=== PATIENT | female | born 1980 | race Caucasian/White ===

== ENCOUNTER → 2016-08-15 | Outpatient (CLI) | payer BC, OTHER ==
[2016-08-15 11:54] LABS: CH 29.4; CHCM 32.6; HDW 2.66; HGB 11.6 gm/dL (11.4-16.0); MCH 29.4 pg (25.0-35.0); MCHC 32.3 g/dL (31.0-37.0); MCV 90.9 fL (80.0-100.0); Mean Platelet Volume 7.7; RBC 3.95 m/uL (3.80-5.40); RDW 13.6 % (11.5-15.5); WBC 16.4 k/uL (3.8-10.6)
== END | disposition home or self-care (01) ==
LOC: LABWHC1 10:26
PROVIDERS: ATTEND Internal Medicine Cardiovascular Disease
DX: Z34.82 Encounter for supervision of other normal pregnancy, second trimester (principal); Z3A.00 Weeks of gestation of pregnancy not specified
CPT/HCPCS: 36415; 82950; 84439; 84443; 85027

== ENCOUNTER 2016-11-04 10:18 | Inpatient (IN) | payer BC, OTHER ==
[2016-11-04 10:59] VITALS: BMI 54.9
[2016-11-04] MEDS ORDERED: CITRIC ACID-SODIUM CITRATE 15 ML CUP PO ONE (11:14)
[2016-11-04] MEDS ORDERED: ceFAZolin 3 GM in SODIUM CHLORIDE 0.9% 100 ML IVPB ONE (11:14)
[2016-11-04] MEDS: LACTATED RINGERS 1,000 ML IV SCH ×3 (11:28→21:51)
[2016-11-04 11:54] LABS: Basophils % (A) 0 %; CHCM 32.1; Eosinophils # (A) 0.3 k/uL (0-0.7); Eosinophils % (A) 2 %; HCT 35.4 % (34.0-46.0); HDW 2.62; HGB 11.2 gm/dL (11.4-16.0); Luc # (Auto) 0.26; Luc % (Auto) 2; Lymphocytes # (A) 2.2 k/uL (1.0-4.8); Lymphocytes % (A) 17 %; MCH 28.7 pg (25.0-35.0); MCHC 31.6 g/dL (31.0-37.0); MCV 90.9 fL (80.0-100.0); Mean Platelet Volume 7.3; Monocytes # (A) 0.7 k/uL (0-1.0); Monocytes % (A) 5 %; Neutrophils # (A) 9.6 k/uL (1.3-7.7); Neutrophils % (A) 73 %; RDW 14.7 % (11.5-15.5); WBC 13.1 k/uL (3.8-10.6); WBC (Perox) 14.08
[2016-11-04] MEDS ORDERED: ONDANSETRON 4 MG/2 ML VIAL ONE (16:17)
[2016-11-04] MEDS ORDERED: PHENYLEPHRINE-0.9% NACL SYG 1 MG/10 ML SYRINGE ONE (16:17)
[2016-11-04] MEDS ORDERED: OXYTOCIN 10 UNIT/ML 1 ML VIAL IM ONE (16:17)
[2016-11-04] MEDS ORDERED: fentaNYL (PF) 50 MCG/ML 2 ML AMP ONE (16:17)
[2016-11-04] MEDS ORDERED: DEXAMETHASONE SOD PHOS (MDV) 100 MG/10 ML VIAL ONE (16:17)
[2016-11-04] MEDS ORDERED: MORPHINE SULFATE (PF) 0.3 MG/0.3 ML SYR ONE (16:17)
[2016-11-04] MEDS ORDERED: MORPHINE SULFATE 4 MG/ML SYRINGE IVP PRN (17:03)
[2016-11-04] MEDS ORDERED: ONDANSETRON 4 MG/2 ML VIAL IVP PRN ×2 (17:03→17:05)
[2016-11-04] MEDS ORDERED: NALOXONE 0.4 MG/ML 1 ML VIAL IV PRN ×2 (17:03→17:05)
[2016-11-04] MEDS ORDERED: diphenhydrAMINE 50 MG/ML 1 ML VIAL IVP PRN ×3 (17:03→17:05)
[2016-11-04] MEDS ORDERED: ZOLPIDEM 5 MG TAB PO PRN (17:05)
[2016-11-04] MEDS ORDERED: diphenhydrAMINE 25 MG CAP PO PRN (17:05)
[2016-11-04] MEDS ORDERED: Acetaminophen-Codeine 300-30mg TAB PO PRN ×2 (17:05)
[2016-11-04] MEDS ORDERED: SIMETHICONE 80 MG CHEWABLE PO PRN (17:05)
[2016-11-04] MEDS ORDERED: ACETAMINOPHEN TAB 325 MG TAB PO PRN (17:05)
[2016-11-04] MEDS ORDERED: diphenhydrAMINE 50 MG CAP PO PRN (17:05)
[2016-11-04] MEDS ORDERED: METOCLOPRAMIDE 5 MG/ML 2 ML VIAL IVP PRN (17:05)
[2016-11-04] MEDS ORDERED: KETOROLAC 30 MG/ML 1 ML VIAL IVP PRN (17:05)
--- NOTE | 2016-11-04 17:09 | P.HPOB ---
History of Present Illness H&P Date: 11/04/16 Chief Complaint: iup term:hypertension:narcolepsy Pain is a 36-year-old at 37 weeks gestation who arrives from my office having elevated blood pressures. Blood pressure the office was 160/92 she is therefore scheduled for a primary low transverse section. A long discussion was held with the patient on induction versus due to her medical history she does not want to try an induction particular was unfavorable cervix. Her cervix is closed thick and high and we would need to before doing an induction verify position of the baby as I cannot palpate the position and patient is morbidly obese limiting the ability for Trey's. However she has opted for section. Risks/benefits/alternatives to this were discussed with patient in detail as well as her and all questions were answered for her prior to proceeding to the operating room. On physical exam this is morbidly obese female whose HEENT is unremarkable. Heart regular, lungs clear, extremities without pain abdomen soft gravid uterus is noted. heart tones 130s to 140s and were reactive in the office. Since being in labor and delivery she has had no overly significant blood pressure issues and her blood pressure prior to going to the section was 120/70. Assessment intrauterine at term with hypertension and narcolepsy. Plan primary low transverse section Past Medical History Past Medical History: Hypertension Additional Past Medical History / Comment(s): narcolepsy History of Any Multi-Drug Resistant Organisms: None Reported Past Surgical History: Cholecystectomy, Tonsillectomy Additional Past Surgical History / Comment(s): hx of narcolepsy Past Psychological History: Depression Smoking Status: Former smoker Past Alcohol Use History: None Reported Past Drug Use History: Marijuana - Past Family History Mother Additional Family Medical History / Comment(s): mother hypertension Medications and Allergies Home Medications Medication Instructions Recorded Confirmed Type Aspirin 81 mg PO DAILY 05/26/15 11/04/16 History Labetalol [Trandate] 200 mg PO BID 11/04/16 11/04/16 History Pnv with Ca,No.72/Iron/FA 1 each PO DAILY 11/04/16 11/04/16 History [ Plus Tablet] Allergies Allergy/AdvReac Type Severity Reaction Status Date / Time No Known Allergies Allergy Verified 05/26/15 10:28 Exam Osteopathic Statement: *. No significant issues noted on an osteopathic structural exam other than those noted in the History and Physical/Consult. - Vital Signs Vital signs: Vital Signs Temp Pulse Resp BP 11/04/16 10:51 97.8 F 82 16 120/70 Intake and Output 11/04/16 11/04/16 11/04/16 06:59 14:59 22:59 Intake Total 1200 Balance 1200 Intake: IV 1200 Lactated Ringers 1,000 ml 1200 @ 125 mls/hr IV .Q8H [facility] Rx#:[id number] Other: Weight 149.685 kg Patient Weight 11/05/16 06:59 Weight 149.685 kg - OBG Physical Exam Abdomen: bowel sounds normal, no diffuse tenderness, no bruit present, no guarding noted, no hepatomegaly, no splenomegaly, no mass Results Result Diagrams: 11/04/16 11:28 Abnormal Lab Results - Last 24 Hours (Table) 11/04/16 Range/Units 11:28 WBC 13.1 H (3.8-10.6) k/uL Hgb 11.2 L (11.4-16.0) gm/dL Neutrophils # 9.6 H (1.3-7.7) k/uL
--- NOTE | 2016-11-04 17:13 | P.OP ---
Date of Procedure: 11/04/16 Preoperative Diagnosis: Intrauterine at term: Hypertension: Narcolepsy Postoperative Diagnosis: Same: Autumn breech presentation Procedure(s) Performed: Primary low transverse section Anesthesia: spinal Surgeon: Noah Black Automatic Die Cutting Machine Operator #1: Jw Bobby Estimated Blood Loss (ml): 600 IV fluids (ml): 600 Urine output (ml): 200 Pathology: other (Placenta) Condition: stable Disposition: floor Operative Findings: Female from autumn breech presentation scores of 9 and 9 at one and 5 minutes respectively and weight was 6 lbs. 6 oz. Description of Procedure: Patient was taken the operating suite where a spinal anesthetic was found to be adequate. She was prepped and draped in the normal sterile fashion and placed in dorsal supine position with leftward tilt. Initially a Pfannenstiel skin incision was made and this incision was then carried through to underlying layer of the fascia was second knife. Fascia was then nicked in the midline and this opening was extended laterally with Saxena scissors. Superior and inferior aspect of this incision were then grasped tented up and bluntly and sharply dissected off the rectus muscles. Rectus muscles were then divided in the midline and sharp dissection through the peritoneum was made. This opening was then extended superiorly and inferiorly with good visualization of both bowel bladder. Bladder blade was then placed and the bladder flap was identified. It was entered sharply with Metzenbaum scissors and this opening was extended across the face of the uterus with Metzenbaum scissors. Knife was then used to incise uterus was then opened fully with hemostat and extended bluntly. Breech presentation was then noted and the buttock was elevated to the incision and with fundal pressure we were able to deliver down to level of the shoulders arms were swept in front and in the head was atraumatically delivered. Mouth nares were then bulb suctioned and the umbilical cord was clamped and cut in usual fashion. Nursery personnel was then present to assume care. Placenta was then delivered intact and Pitocin was added to the IV. Uterus was then exteriorized cleared of clots and debris and closed in 2 layers with 0 Vicryl suture. Once excellent hemostasis was noted 3-0 Vicryl was used to reapproximate the bladder flap. Blood and debris was then suctioned from the posterior cul-de-sac and uterus was reinserted into the abdomen. Peritoneal layer was then reapproximated with 0 Vicryl suture. Fascial layer was closed with 0 Vicryl suture. 3-0 Vicryl was then used to reapproximate the subcuticular tissues and the skin was closed with 3-0 Vicryl on a Aníbal needle. Sponge, lap, needle counts were all correct 2. Patient was taken to the recovery room in stable and satisfactory condition.
[2016-11-04] MEDS: SENNOSIDES-DOCUSATE SODIUM 1 EACH TAB PO SCH (21:49)
[2016-11-05] MEDS: KETOROLAC 30 MG/ML 1 ML VIAL IVP PRN ×2 (04:19→11:58)
[2016-11-05] MEDS: LACTATED RINGERS 1,000 ML IV SCH ×3 (04:55→06:33)
[2016-11-05 07:51] LABS: Basophils % (A) 0 %; CH 28.9; CHCM 32.8; Eosinophils # (A) 0.1 k/uL (0-0.7); Eosinophils % (A) 0 %; HCT 35.1 % (34.0-46.0); HDW 2.67; HGB 11.5 gm/dL (11.4-16.0); Luc # (Auto) 0.32; Luc % (Auto) 2; Lymphocytes # (A) 2.2 k/uL (1.0-4.8); Lymphocytes % (A) 12 %; MCH 29.1 pg (25.0-35.0); MCHC 32.8 g/dL (31.0-37.0); MCV 88.6 fL (80.0-100.0); Mean Platelet Volume 6.9; Monocytes # (A) 0.8 k/uL (0-1.0); Monocytes % (A) 4 %; Neutrophils # (A) 15.7 k/uL (1.3-7.7); Neutrophils % (A) 82 %; RBC 3.96 m/uL (3.80-5.40); RDW 14.2 % (11.5-15.5); WBC 19.1 k/uL (3.8-10.6); WBC (Perox) 20.16
[2016-11-05] MEDS: SENNOSIDES-DOCUSATE SODIUM 1 EACH TAB PO SCH ×2 (08:05→23:15)
--- NOTE | 2016-11-05 12:49 | P.PNOBGPC ---
Subjective - Subjective Principal diagnosis: post op day 1 Interval history: doing very well ambulating and voiding as well as tolerating her diet. all questions answered for her. cont care for now. bp have been good since c/s. Patient reports: Reports appetite normal, Reports voiding normally, Reports pain well controlled, Reports ambulating normally [place]: doing well Objective - Vital Signs Latest vital signs: Vital Signs Temp Pulse Resp BP BP Pulse Ox 11/05/16 12:00 98.6 F 72 16 115/58 11/05/16 07:46 98.5 F 75 16 117/61 11/05/16 06:00 16 97 11/05/16 04:00 98.2 F 68 16 109/58 97 11/05/16 02:00 16 97 11/05/16 00:00 96.2 F L 71 16 114/66 97 11/04/16 22:00 97.5 F L 78 16 116/68 97 11/04/16 20:00 98.0 F 68 16 125/72 98 11/04/16 19:05 96.6 F L 79 16 121/64 98 11/04/16 18:35 97.5 F L 85 16 97/58 11/04/16 18:04 78 16 98/53 100 11/04/16 17:50 79 16 102/65 11/04/16 17:35 97.0 F L 79 16 119/53 11/04/16 17:20 84 16 119/57 11/04/16 17:05 97.6 F 86 16 121/71 11/04/16 17:04 100 Intake and Output 11/04/16 11/05/16 11/05/16 22:59 06:59 14:59 Intake Total 1700 1000 Output Total 200 1200 300 Balance 1500 -200 -300 Intake: IV 1700 1000 Lactated Ringers 1,000 ml 1000 1000 @ 125 mls/hr IV .Q8H [facility] Rx#:[id number] Output: Urine 200 1200 300 Uretheral ([place]) 900 Other: # Voids 0 1 1 - Exam Lungs: bilateral: normal Chest: Normal S1, Normal S2 Extremities: Present: normal Abdomen: Present: normal appearance, soft. Absent: distention, tenderness Incision: Present: normal, dry, intact Uterus: Present: normal, firm - Labs Labs: Abnormal Lab Results - Last 24 Hours (Table) 11/05/16 Range/Units 07:43 WBC 19.1 H (3.8-10.6) k/uL Neutrophils # 15.7 H (1.3-7.7) k/uL
--- NOTE | 2016-11-05 17:55 | P.PN ---
Progress Note - Text Postoperative day 1 status post section under spinal anesthesia, and intrathecal morphine given for postoperative analgesia, patient doing well, there is no anesthesia related complications, further management as per her primary team
[2016-11-05] MEDS: IBUPROFEN 600 MG TAB PO PRN (18:18)
[2016-11-06] MEDS: IBUPROFEN 600 MG TAB PO PRN ×3 (02:15→17:49)
[2016-11-06] MEDS: SENNOSIDES-DOCUSATE SODIUM 1 EACH TAB PO SCH ×2 (08:13→20:09)
[2016-11-06] MEDS ORDERED: HYDROcodone/APAP 5-325MG 1 EACH TAB PO PRN (11:15)
--- NOTE | 2016-11-06 11:18 | P.PNOBGPC ---
Subjective - Subjective Principal diagnosis: Postoperative day 2 Interval history: Overall Janee is doing well. She is having some pain and we'll switch her to [place] for same. Otherwise she is involuting, voiding and she is tolerating her diet. She does voices no other complaints. Vital signs again are stable with excellent blood pressures. We'll plan to keep her today and work with her with breast-feeding with expectation for hopeful discharge tomorrow. All the questions are answered for her at this time. Heart regular, lungs clear, extremities without pain. Assessment post op day 2. Plan continue current care Objective - Vital Signs Latest vital signs: Vital Signs Temp Pulse Resp BP BP Pulse Ox 11/06/16 08:00 97.9 F 86 20 130/63 98 11/06/16 04:00 98.0 F 79 18 116/65 99 11/06/16 00:00 98.1 F 77 16 119/58 99 11/05/16 19:39 98.0 F 72 18 130/78 100 11/05/16 16:00 98.5 F 81 16 125/57 11/05/16 12:00 98.6 F 72 16 115/58 - Exam Lungs: bilateral: normal Chest: Normal S1, Normal S2 Extremities: Present: normal Abdomen: Present: normal appearance, soft. Absent: distention, tenderness Incision: Present: normal, dry, intact Uterus: Present: normal, firm
[2016-11-06] MEDS: HYDROcodone/APAP 5-325MG 1 EACH TAB PO PRN ×2 (14:30→22:55)
[2016-11-06] MEDS: LACTATED RINGERS 1,000 ML IV SCH ×4 (20:07→20:09)
[2016-11-07] MEDS: IBUPROFEN 600 MG TAB PO PRN (03:46)
[2016-11-07] MEDS: HYDROcodone/APAP 5-325MG 1 EACH TAB PO PRN (07:17)
[2016-11-07] MEDS: SENNOSIDES-DOCUSATE SODIUM 1 EACH TAB PO SCH (07:18)
[2016-11-07 07:23] VITALS: BP 131/72; PULSE 84; RESP 18; TEMP 98.1
--- NOTE | 2016-11-07 11:11 | P.DS ---
Providers Date of admission: 11/04/16 10:18 Expected date of discharge: 11/07/16 Attending physician: Noah Black Hospital Course: Chelsey is discharged home in stable and satisfactory condition on postop day 3. She is ambulating, voiding, and she is tolerating her diet. Pain is better controlled on [place]. Vital signs are stable and afebrile. Heart regular, lungs clear, extremities without pain. She'll follow me in 1 week. Prescription for Motrin, [place] were both provided as well as a prescription for a breast pump. All other questions are answered for her prior to her discharge and she is stable for discharge today. Patient Condition at Discharge: Good Plan - Discharge Summary New Discharge Prescriptions: HYDROcodone/APAP 5-325MG [[place] 5-325] 1 tab PO Q4HR PRN #30 tab PRN Reason: Pain Ibuprofen [Motrin] 600 mg PO Q6HR PRN #30 tab PRN Reason: Pain Discharge Medication List Aspirin 81 mg PO DAILY 05/26/15 [History] Labetalol [Trandate] 200 mg PO BID 11/04/16 [History] Pnv with Ca,No.72/Iron/FA [ Plus Tablet] 1 each PO DAILY 11/04/16 [ History] HYDROcodone/APAP 5-325MG [[place] 5-325] 1 tab PO Q4HR PRN #30 tab 11/06/16 [Rx] Ibuprofen [Motrin] 600 mg PO Q6HR PRN #30 tab 11/06/16 [Rx] Follow up Appointment(s)/Referral(s): Noah Black DO [Doctor of Osteopathic Medicine] - 1 Week Activity/Diet/Wound Care/Special Instructions: No heavy lifting, limit stairs and driving, and pelvic rest. If any high temperatures, heavy bleeding, or severe pain call my office. Discharge Disposition: HOME SELF-CARE
== END 2016-11-07 10:10 | disposition home or self-care (01) | DRG 765 ==
LOC: 4FBP 10:18
PROVIDERS: ADMIT Obstetrics & Gynecology; ATTEND Obstetrics & Gynecology
PROC: 10D00Z1 Extraction of Products of Conception, Low, Open Approach (ICD-10-PCS; principal; 2016-11-04 16:00)
DX: O10.92 Unspecified pre-existing hypertension complicating childbirth (principal); Z68.43 Body mass index [BMI] 50.0-59.9, adult; O99.354 Diseases of the nervous system complicating childbirth; E66.01 Morbid (severe) obesity due to excess calories; O99.214 Obesity complicating childbirth; O32.1XX0 Maternal care for breech presentation, not applicable or unspecified; G47.419 Narcolepsy without cataplexy; Z37.0 Single live birth; Z3A.37 37 weeks gestation of pregnancy; Z86.59 Personal history of other mental and behavioral disorders; Z87.891 Personal history of nicotine dependence; Z79.82 Long term (current) use of aspirin; Z79.899 Other long term (current) drug therapy; Z82.49 Family history of ischemic heart disease and other diseases of the circulatory system
CPT/HCPCS: 85025; 86850; 86900; 86901; 88307

== ENCOUNTER 2017-10-04 17:40 | Emergency (ER) | payer BC, OTHER ==
[2017-10-04 17:48] VITALS: RESP 18; TEMP 98.4
[2017-10-04] MEDS ORDERED: ALBUTEROL NEBULIZED 2.5 MG/3 ML INHALATION STA (18:22)
[2017-10-04] MEDS ORDERED: SODIUM CHLORIDE 0.9% 1,000 ML IV STA (18:22)
--- NOTE | 2017-10-04 18:27 | ED ---
SOB HPI - General Chief Complaint: Shortness of Breath Stated Complaint: Dehydration Time Seen by Provider: 10/04/17 18:09 Source: patient, RN notes reviewed, old records reviewed Mode of arrival: ambulatory Limitations: no limitations - History of Present Illness Initial Comments: This is a 37-year-old female presents emergency department today she complained shortness breath for one day. She states that she went to [place] today for chief complaint of upper respiratory sinus congestion for the past 4 weeks. Patient was seen by the physician there and he thought it appropriate to order an EKG. She denies any chest pain at this time. He sent her to the ER for further evaluation due to an abnormal EKG. Patient reports that she has no specific chest pain at this time no nausea or vomiting. She states she's been having some upper respiratory congestion. No fevers or chills. She states that she is more short of breath when she is ambulating. Patient onto a chest x -ray or any other evaluation and sent her directly here. This patient is a previous smoker. - Related Data Home Medications Medication Instructions Recorded Confirmed Dextroamphetamine/Amphetamine 30 mg PO BID 10/04/17 10/04/17 [Adderall] Labetalol HCl 100 mg PO DAILY 10/04/17 10/04/17 QUEtiapine FUMARATE [SEROquel] 25 mg PO HS 10/04/17 10/04/17 l-Norgest/E.estradiol-E.estrad 1 tab PO DAILY 10/04/17 10/04/17 [Seasonique 0.15-0.03-0.01 Tab] Previous Rx's Medication Instructions Recorded Amoxic-Pot Clav 875-125Mg 1 tab PO Q12HR #20 tablet 10/04/17 [Augmentin 875-125] Fluticasone Propionate [Flonase 1 spray EA NOSTRIL BID #1 bottle 10/04/17 Allergy Relief] Allergies Allergy/AdvReac Type Severity Reaction Status Date / Time No Known Allergies Allergy Verified 10/04/17 18:33 Review of Systems ROS Statement: Those systems with pertinent positive or pertinent negative responses have been documented in the HPI. ROS Other: All systems not noted in ROS Statement are negative. Past Medical History Past Medical History: Hypertension Additional Past Medical History / Comment(s): narcolepsy History of Any Multi-Drug Resistant Organisms: None Reported Past Surgical History: Cholecystectomy, Tonsillectomy Additional Past Surgical History / Comment(s): hx of narcolepsy Past Psychological History: Depression Smoking Status: Former smoker Past Alcohol Use History: None Reported Past Drug Use History: Marijuana - Past Family History Mother Additional Family Medical History / Comment(s): mother hypertension General Exam - General Exam Comments Initial Comments: This patient is a 37-year-old female. She does not appear to be in any acute distress. Limitations: no limitations General appearance: alert, in no apparent distress Head exam: Present: atraumatic, normocephalic, normal inspection Eye exam: Present: normal appearance, PERRL, EOMI. Absent: scleral icterus, conjunctival injection, periorbital swelling ENT exam: Present: normal exam, mucous membranes moist Neck exam: Present: normal inspection. Absent: tenderness, meningismus, lymphadenopathy Respiratory exam: Present: normal lung sounds bilaterally. Absent: respiratory distress, wheezes, rales, rhonchi, stridor Cardiovascular Exam: Present: regular rate, normal rhythm, normal heart sounds. Absent: systolic murmur, diastolic murmur, rubs, gallop, clicks GI/Abdominal exam: Present: soft, normal bowel sounds. Absent: distended, tenderness, guarding, rebound, rigid Extremities exam: Present: normal inspection, full ROM, normal capillary refill. Absent: tenderness, pedal edema, joint swelling, calf tenderness Back exam: Present: normal inspection Neurological exam: Present: alert, oriented X3, CN II-XII intact Psychiatric exam: Present: normal affect, normal mood Skin exam: Present: warm, dry, intact, normal color. Absent: rash Course Vital Signs 10/04/17 10/04/17 10/04/17 17:46 18:36 18:37 Temperature 98.4 F Pulse Rate 82 82 Respiratory 18 18 Rate Blood Pressure 147/72 O2 Sat by Pulse 99 Oximetry 10/04/17 20:14 Temperature Pulse Rate 71 Respiratory 18 Rate Blood Pressure 136/100 O2 Sat by Pulse Oximetry Medical Decision Making - Medical Decision Making This is a 37-year-old female presents emergency department today she complained shortness breath for one day. She states that she went to [place] today for chief complaint of upper respiratory sinus congestion for the past 4 weeks. Patient was seen by the physician there and he thought it appropriate to order an EKG. She denies any chest pain at this time. He sent her to the ER for further evaluation due to an abnormal EKG. this patient is EKG was reviewed and does show some mild PVCs. She is a syncopal episodes. Denies any chest pain. Patient was given IV fluids labwork obtained. She does have an elevated white blood cell count, likely related to inflammatory response with the sinusitis. Patient chest x-ray was reviewed and normal. All other other labs were unremarkable. Patient reports that after breathing treatment seems like her shortness of breath seems to diminish. She states that she would like to home and follow-up with primary care provider. This mL for the patient on Augmentin for sinusitis and Flonase. Discussed the importance of following up with her primary care provider. All questions were answered and return parameters were discussed. - Lab Data Result diagrams: 10/04/17 18:28 10/04/17 18:28 Lab Results 10/04/17 10/04/17 10/04/17 Range/Units 18:28 18:28 18:28 WBC 15.3 H (3.8-10.6) k/uL RBC 4.69 (3.80-5.40) m/uL Hgb 13.4 (11.4-16.0) gm/dL Hct 41.3 (34.0-46.0) % MCV 88.0 (80.0-100.0) fL MCH 28.6 (25.0-35.0) pg MCHC 32.5 (31.0-37.0) g/dL RDW 13.8 (11.5-15.5) % Plt Count 380 (150-450) k/uL Neutrophils % 68 % Lymphocytes % 23 % Monocytes % 5 % Eosinophils % 3 % Basophils % 1 % Neutrophils # 10.5 H (1.3-7.7) k/uL Lymphocytes # 3.4 (1.0-4.8) k/uL Monocytes # 0.8 (0-1.0) k/uL Eosinophils # 0.4 (0-0.7) k/uL Basophils # 0.1 (0-0.2) k/uL PT (9.0-12.0) sec INR (<1.2) APTT (22.0-30.0) sec D-Dimer (<0.60) mg/L FEU Sodium 139 (137-145) mmol/L Potassium 4.2 (3.5-5.1) mmol/L Chloride 104 (98-107) mmol/L Carbon Dioxide 25 (22-30) mmol/L Anion Gap 10 mmol/L BUN 10 (7-17) mg/dL Creatinine 0.80 (0.52-1.04) mg/dL Est GFR (CKD-EPI)AfAm >90 (>60 ml/min/1.73 sqM) Est GFR (CKD-EPI)NonAf >90 (>60 ml/min/1.73 sqM) Glucose 90 (74-99) mg/dL Calcium 9.8 (8.4-10.2) mg/dL Magnesium 1.9 (1.6-2.3) mg/dL Total Bilirubin 0.4 (0.2-1.3) mg/dL AST 14 (14-36) U/L ALT 25 (9-52) U/L Alkaline Phosphatase 92 (38-126) U/L Total Creatine Kinase 70 (30-135) U/L CK-MB (CK-2) 0.5 (0.0-2.4) ng/mL CK-MB (CK-2) Rel Index 0.7 Troponin I <0.012 (0.000-0.034) ng/mL Total Protein 7.5 (6.3-8.2) g/dL Albumin 4.1 (3.5-5.0) g/dL 10/04/17 Range/Units 18:28 WBC (3.8-10.6) k/uL RBC (3.80-5.40) m/uL Hgb (11.4-16.0) gm/dL Hct (34.0-46.0) % MCV (80.0-100.0) fL MCH (25.0-35.0) pg MCHC (31.0-37.0) g/dL RDW (11.5-15.5) % Plt Count (150-450) k/uL Neutrophils % % Lymphocytes % % Monocytes % % Eosinophils % % Basophils % % Neutrophils # (1.3-7.7) k/uL Lymphocytes # (1.0-4.8) k/uL Monocytes # (0-1.0) k/uL Eosinophils # (0-0.7) k/uL Basophils # (0-0.2) k/uL PT 9.6 (9.0-12.0) sec INR 1.0 (<1.2) APTT 25.5 (22.0-30.0) sec D-Dimer 0.41 (<0.60) mg/L FEU Sodium (137-145) mmol/L Potassium (3.5-5.1) mmol/L Chloride (98-107) mmol/L Carbon Dioxide (22-30) mmol/L Anion Gap mmol/L BUN (7-17) mg/dL Creatinine (0.52-1.04) mg/dL Est GFR (CKD-EPI)AfAm (>60 ml/min/1.73 sqM) Est GFR (CKD-EPI)NonAf (>60 ml/min/1.73 sqM) Glucose (74-99) mg/dL Calcium (8.4-10.2) mg/dL Magnesium (1.6-2.3) mg/dL Total Bilirubin (0.2-1.3) mg/dL AST (14-36) U/L ALT (9-52) U/L Alkaline Phosphatase (38-126) U/L Total Creatine Kinase (30-135) U/L CK-MB (CK-2) (0.0-2.4) ng/mL CK-MB (CK-2) Rel Index Troponin I (0.000-0.034) ng/mL Total Protein (6.3-8.2) g/dL Albumin (3.5-5.0) g/dL 10/04/17 19:53 10/04/17 19:53 EKG shows sinus rhythm with occasional PVCs. Otherwise normal EKG. Ventricular rate of 87 bpm. AK interval 160 for male sex. QRS duration 80 ms. QT QTc is 380/457 ms. Noticed this elevation or T-wave inversion. No evidence of atrial or ventricular arrhythmias. - Radiology Data Radiology results: report reviewed Normal chest x-ray. No acute changes. Disposition Clinical Impression: Sinusitis, PVC (premature ventricular contraction) Disposition: HOME SELF-CARE Condition: Good Instructions: Sinusitis (ED) Additional Instructions: and advised to follow-up with primary care provider in the next 22 days. Return to emergency department if any alarming signs or symptoms occur. Prescriptions: Amoxic-Pot Clav 875-125Mg [Augmentin 875-125] 1 tab PO Q12HR #20 tablet Fluticasone Propionate [Flonase Allergy Relief] 1 spray EA NOSTRIL BID #1 bottle Referrals: Davie Putnam DO [Primary Care Provider] - 1-2 days Time of Disposition: 20:11
[2017-10-04 18:38] LABS: Basophils # (A) 0.1 k/uL (0-0.2); Basophils % (A) 1 %; Eosinophils # (A) 0.4 k/uL (0-0.7); Eosinophils % (A) 3 %; HCT 41.3 % (34.0-46.0); HGB 13.4 gm/dL (11.4-16.0); Lymphocytes # (A) 3.4 k/uL (1.0-4.8); Lymphocytes % (A) 23 %; MCH 28.6 pg (25.0-35.0); MCHC 32.5 g/dL (31.0-37.0); Mean Platelet Volume 7.9; Monocytes # (A) 0.8 k/uL (0-1.0); Monocytes % (A) 5 %; Neutrophils # (A) 10.5 k/uL (1.3-7.7); Neutrophils % (A) 68 %; Platelet Count 380 k/uL (150-450); RBC 4.69 m/uL (3.80-5.40); RDW 13.8 % (11.5-15.5); WBC 15.3 k/uL (3.8-10.6)
[2017-10-04 18:51] LABS: D-Dimer 0.41 mg/L FEU (<0.60)
[2017-10-04 18:54] LABS: ALT 25 U/L (9-52); AST 14 U/L (14-36); Albumin 4.1 g/dL (3.5-5.0); Alkaline Phosphatase 92 U/L (38-126); Anion Gap 10 mmol/L; Blood Urea Nitrogen 10 mg/dL (7-17); Calcium 9.8 mg/dL (8.4-10.2); Carbon Dioxide 25 mmol/L (22-30); Chloride 104 mmol/L (98-107); Creatine Kinase 70 U/L (30-135); Glucose 90 mg/dL (74-99); Magnesium 1.9 mg/dL (1.6-2.3); Potassium 4.2 mmol/L (3.5-5.1); Sodium 139 mmol/L (137-145); Total Bilirubin 0.4 mg/dL (0.2-1.3); Total Protein 7.5 g/dL (6.3-8.2)
[2017-10-04 18:55] LABS: Partial Thromboplastin Time 25.5 sec (22.0-30.0); Prothrombin Time 9.6 sec (9.0-12.0)
[2017-10-04 19:08] LABS: Creatine Kinase MB 0.5 ng/mL (0.0-2.4); Troponin I <0.012 ng/mL (0.000-0.034)
--- NOTE | 2017-10-04 19:39 | XR ---
EXAMINATION TYPE: XR chest 2V DATE OF EXAM: 10/04/2017 COMPARISON: 10/19/2014 HISTORY: Difficulty breathing TECHNIQUE: Frontal and lateral views of the chest are obtained. FINDINGS: Heart and mediastinum are normal. Lungs are clear. Diaphragm is normal. Bony thorax is int act. IMPRESSION: Normal chest. No change.
[2017-10-04 20:15] VITALS: BP 136/100; PULSE 71
== END 2017-10-04 20:33 | disposition home or self-care (01) ==
LOC: EC 17:40
DX: I49.3 Ventricular premature depolarization (principal); J32.9 Chronic sinusitis, unspecified; D72.829 Elevated white blood cell count, unspecified; I10 Essential (primary) hypertension; F32.9 Major depressive disorder, single episode, unspecified; Z87.891 Personal history of nicotine dependence; Z79.3 Long term (current) use of hormonal contraceptives; Z79.899 Other long term (current) drug therapy; Z82.49 Family history of ischemic heart disease and other diseases of the circulatory system
CPT/HCPCS: 36415; 71046; 80053; 82550; 82553; 83735; 84484; 85025; 85379; 85610; 85730; 93005; 94640; 96360; 96361; 99285

== ENCOUNTER → 2017-12-08 | Outpatient (CLI) | payer BC ==
--- NOTE | 2017-12-08 10:16 | P.STRESS ---
- Stress Test Note Stress Test Results/Findings: Exam Performed: stress echo exercise Exam Date: 12/08/17 Reason for Exam: SOB / PALP Height: 5 ft 3 in Weight: 149.685 kg Protocol: GIA Stage: 2 Duration of Exercise: 5:00 Resting Heart Rate: 90 Resting Blood Pressure: 135/85 Maximum Achieved Heart Rate: 169 Maximum Achieved Blood Pressure: 154/46 85% PMHR: 156 100% PMHR: 184 METS: 7.0 Technologist Comment: Stress Test Results/Findings: Low average excess capacity of 5 minutes only. Baseline heart rate 90 beats a minute, Baseline blood pressure 135/85 mmHg. Peak heart rate 169 beats a minute peak blood pressure 236/60 mmHg No ECG evidence for ischemia PACs noted at regular intervals No exercise induced atrial fibrillation
--- NOTE | 2017-12-12 13:43 | EST ---
Addendum entered and electronically signed by Sukhwinder Watkins MD 12/08/17 10:52: Original Note: - Stress Test Note Stress Test Results/Findings: Exam Performed: stress echo exercise Exam Date: 12/08/17 Reason for Exam: SOB / PALP Height: 5 ft 3 in Weight: 149.685 kg Protocol: GIA Stage: 2 Duration of Exercise: 5:00 Resting Heart Rate: 90 Resting Blood Pressure: 135/85 Maximum Achieved Heart Rate: 169 Maximum Achieved Blood Pressure: 154/46 85% PMHR: 156 100% PMHR: 184 METS: 7.0 Technologist Comment: Stress Test Results/Findings: Low average excess capacity of 5 minutes only. Baseline heart rate 90 beats a minute, Baseline blood pressure 135/85 mmHg. Peak heart rate 169 beats a minute peak blood pressure 236/60 mmHg No ECG evidence for ischemia PACs noted at regular intervals No exercise induced atrial fibrillation MTDD
== END | disposition home or self-care (01) ==
LOC: RADNMMAIN 08:58
PROVIDERS: ATTEND Family Medicine
DX: R07.89 Other chest pain (principal)
CPT/HCPCS: 93017; 93270; 93271; 93306

== ENCOUNTER → 2019-05-21 | Outpatient (CLI) | payer BC ==
[2019-05-21 08:29] LABS: HCT 39.3 % (34.0-46.0); HGB 12.9 gm/dL (11.4-16.0); MCH 31.4 pg (25.0-35.0); MCHC 32.7 g/dL (31.0-37.0); MCV 95.8 fL (80.0-100.0); Mean Platelet Volume 6.9; Platelet Count 303 k/uL (150-450); RBC 4.11 m/uL (3.80-5.40); RDW 12.6 % (11.5-15.5); WBC 10.1 k/uL (3.8-10.6)
[2019-05-21 09:38] LABS: Appearance,Urine Clear (Clear); Bacteria,Urine Rare /hpf; Bilirubin,Urine Negative (Negative); Blood,Urine Trace (Negative); Color,Urine Yellow; Glucose,Urine (UA) Negative (Negative); Ketones,Urine Negative (Negative); Leukocyte Esterase,Urine Negative (Negative); Mucus,Urine Few /hpf; Nitrite,Urine Negative (Negative); Protein,Urine Trace (Negative); RBC,Urine 1 /hpf (0-5); Specific Gravity,Urine 1.027 (1.001-1.035); Squamous Epithelial Cell,Urine 3 /hpf (0-4); Urobilinogen,Urine <2.0 mg/dL (<2.0); WBC,Urine 1 /hpf (0-5)
[2019-05-21 16:45] LABS: African American GFR (CKD) 108.4 (60.0-200.0); Anion Gap 10.1 mmol/L (4.00-12.00); BUN/Creat Ratio 17.5 Ratio (12.00-20.00); Calcium 8.7 mg/dL (8.7-10.3); Carbon Dioxide 25.9 mmol/L (21.6-31.8); Chol/HDL Ratio 3.13; LDL Cholesterol,Calculated 93.8 mg/dL (0.0-131.0); Potassium 3.9 mmol/L (3.5-5.5); Total Bilirubin 0.5 mg/dL (0.2-1.2); VLDL Calculation 17.2 mg/dL (5.00-40.00)
[2019-05-21 17:03] LABS: T4, Free (Free Thyroxine) 0.9 ng/dL (0.80-1.80)
[2019-05-21 17:36] LABS: Hemoglobin A1C 5.1 % (4.0-6.0)
== END | disposition home or self-care (01) ==
LOC: LABWHC1 08:02
PROVIDERS: ATTEND Family Medicine
DX: I10 Essential (primary) hypertension (principal); R73.9 Hyperglycemia, unspecified; F90.9 Attention-deficit hyperactivity disorder, unspecified type; G47.429 Narcolepsy in conditions classified elsewhere without cataplexy
CPT/HCPCS: 36415; 80053; 80061; 81001; 83036; 84439; 84443; 85027

== ENCOUNTER → 2019-06-19 | Outpatient (CLI) | payer BC ==
--- NOTE | 2019-06-19 15:21 | XR ---
Bilateral hips HISTORY: Pain and clicking 2 views of each hip submitted on a total 4 images Bone mineralization, joint spaces and alignment are normal. IMPRESSION: Normal hips.
== END | disposition home or self-care (01) ==
LOC: RADXRMAIN 15:00
PROVIDERS: ATTEND Family Medicine
DX: M25.551 Pain in right hip (principal); M25.552 Pain in left hip
CPT/HCPCS: 73521

== ENCOUNTER → 2021-01-08 | Outpatient (CLI) | payer BC ==
[2021-01-08 11:36] LABS: HCT 38.7 % (37.2-46.3); HGB 12.5 g/dL (12.0-15.0); MCH 30.8 pg (27.0-32.0); MCHC 32.3 g/dL (32.0-37.0); MCV 95.3 fL (80.0-97.0); Mean Platelet Volume 10.6 fL (9.5-12.2); Platelet Count 368 X 10*3/uL (140-440); RBC 4.06 X 10*6/uL (4.10-5.20); RDW 13.7 % (11.5-14.5); WBC 10.29 X 10*3/uL (4.50-10.00)
[2021-01-08 13:18] LABS: Hemoglobin A1C 4.9 % (4.0-6.0)
[2021-01-08 17:26] LABS: African American GFR (CKD) 107.6 (60.0-200.0); Albumin/Globulin Ratio 1.82 (1.60-3.17); Anion Gap 6.3 mmol/L (4.00-12.00); BUN/Creat Ratio 18.75 Ratio (12.00-20.00); Calcium 8.6 mg/dL (8.7-10.3); Carbon Dioxide 23.7 mmol/L (21.6-31.8); Chol/HDL Ratio 3.27; Globulin 2.2 g/dL (1.6-3.3); LDL Cholesterol,Calculated 112.2 mg/dL (0.0-131.0); Non-African American GFR(CKD) 92.9 (60.0-200.0); Potassium 4.4 mmol/L (3.5-5.5); Total Bilirubin 0.5 mg/dL (0.3-1.2); Total Protein 6.2 g/dL (6.2-8.2); VLDL Calculation 12.8 mg/dL (5.00-40.00)
[2021-01-08 17:38] LABS: T4, Free (Free Thyroxine) 0.9 ng/dL (0.80-1.80)
== END | disposition home or self-care (01) ==
LOC: LABWHC1 08:17
PROVIDERS: ATTEND Family Medicine
DX: Z00.00 Encounter for general adult medical examination without abnormal findings (principal); G47.419 Narcolepsy without cataplexy; I10 Essential (primary) hypertension
CPT/HCPCS: 36415; 80053; 80061; 82306; 83036; 84439; 84443; 85027

== ENCOUNTER 2021-10-05 13:34 | Emergency (ER) | payer BC ==
[2021-10-05 15:06] LABS: Potassium 4.2 mmol/L (3.5-5.1)
[2021-10-05 15:07] LABS: ALT 20 U/L (4-34); AST 23 U/L (14-36); African American GFR (CKD) >90 (>60 ml/min/1.73 sqM); Albumin 4.3 g/dL (3.5-5.0); Alkaline Phosphatase 100 U/L (38-126); Anion Gap 5 mmol/L; Blood Urea Nitrogen 13 mg/dL (7-17); Calcium 9.5 mg/dL (8.4-10.2); Carbon Dioxide 27 mmol/L (22-30); Chloride 103 mmol/L (98-107); Glucose 101 mg/dL (74-99); Magnesium 1.9 mg/dL (1.6-2.3); Non-African American GFR(CKD) >90 (>60 ml/min/1.73 sqM); Sodium 135 mmol/L (137-145); Total Bilirubin 0.7 mg/dL (0.2-1.3); Total Protein 7.6 g/dL (6.3-8.2)
[2021-10-05 15:09] LABS: Partial Thromboplastin Time 26.8 sec (22.0-30.0); Prothrombin Time 10.5 sec (9.0-12.0)
[2021-10-05 15:26] LABS: Basophils % (A) 0 %; Eosinophils # (A) 0.3 k/uL (0-0.7); Eosinophils % (A) 2 %; HCT 44.4 % (34.0-46.0); HGB 14.3 gm/dL (11.4-16.0); Lymphocytes # (A) 2.7 k/uL (1.0-4.8); Lymphocytes % (A) 22 %; MCH 29.8 pg (25.0-35.0); MCHC 32.2 g/dL (31.0-37.0); MCV 92.4 fL (80.0-100.0); Mean Platelet Volume 8.5; Monocytes # (A) 0.7 k/uL (0-1.0); Monocytes % (A) 6 %; Neutrophils # (A) 8.5 k/uL (1.3-7.7); Neutrophils % (A) 69 %; Platelet Count 376 k/uL (150-450); RBC 4.81 m/uL (3.80-5.40); RDW 13.7 % (11.5-15.5); WBC 12.4 k/uL (3.8-10.6)
[2021-10-05 17:50] VITALS: PULSE 85; RESP 16; TEMP 97.8
[2021-10-05 17:52] VITALS: BP 147/90
--- NOTE | 2021-10-05 18:24 | ED ---
General Adult HPI - General Chief complaint: Chest Pain Stated complaint: chest pain Time Seen by Provider: 10/05/21 17:50 Source: patient, RN notes reviewed, old records reviewed Mode of arrival: ambulatory Limitations: no limitations - History of Present Illness Initial comments: This is a 41-year-old female presents emergency Department complaining of chest pressure on Monday lasted a few hours and went away patient states she was good all day Monday and then earlier today started having chest pressure. Patient states after a few hours when awake and but she was already in the emergency department and was looking to be seen. Patient states she also has some palpitations occasionally throughout the day today as well Monday. Patient denies any shortness of breath or difficulty breathing. Patient denies any diaphoretic episodes. Patient denies any radiation of the pain. Patient denies any nausea vomiting. Patient denies any swelling to the legs or calf tenderness. Patient denies any recent fever chills or cough. Patient denies diabetes or high cholesterol and denies smoking. Patient states she does have a history of high blood pressure. And was recently started on labetalol. Patient states her father had a heart attack in his late 40s.currently patient is chest pain-free. - Related Data Home Medications Medication Instructions Recorded Confirmed Labetalol HCl 100 mg PO DAILY 10/04/17 10/05/21 Benzoyl Peroxide [Benzoyl Peroxide 1 applic TOPICAL BID PRN 10/05/21 10/05/21 Cleanser] Cholecalciferol [Vitamin D3 (25 25 mcg PO DAILY 10/05/21 10/05/21 Mcg = 1000 Iu)] Dextroamphetamine/Amphetamine 20 mg PO DAILY 10/05/21 10/05/21 [Adderall] [place]-3 Fatty Acids/Fish Oil [Fish 1 cap PO DAILY 10/05/21 10/05/21 Oil 1,000 mg Softgel] Xywav 0.5gm/Ml 4 gm PO DIRECTED 10/05/21 10/05/21 Allergies Allergy/AdvReac Type Severity Reaction Status Date / Time No Known Allergies Allergy Verified 10/05/21 19:15 Review of Systems ROS Statement: Those systems with pertinent positive or pertinent negative responses have been documented in the HPI. ROS Other: All systems not noted in ROS Statement are negative. Past Medical History Past Medical History: Hypertension Additional Past Medical History / Comment(s): narcolepsy History of Any Multi-Drug Resistant Organisms: None Reported Past Surgical History: Cholecystectomy, Tonsillectomy Additional Past Surgical History / Comment(s): hx of narcolepsy Past Psychological History: Depression Smoking Status: Never smoker Past Alcohol Use History: None Reported Past Drug Use History: None Reported, Marijuana - Past Family History Mother Additional Family Medical History / Comment(s): mother hypertension General Exam - General Exam Comments Initial Comments: GENERAL: Patient is well-developed and well-nourished. Patient is nontoxic and well-hydr ated and is in no acute distress. ENT: Neck is soft and supple. No significant lymphadenopathy is noted. Oropharynx is clear. Moist mucous membranes. Neck has full range of motion without eliciting any pain. EYES: The sclera were anicteric and conjunctiva were pink and moist. Extraocular move ments were intact and pupils were equal round and reactive to light. Eyelids were unremarkable. PULMONARY: Unlabored respirations. Good breath sounds bilaterally. No audible rales rhonchi or wheezing was noted. CARDIOVASCULAR: There is a regular rate and rhythm without any murmurs gallops or rubs. ABDOMEN: Soft and nontender with normal bowel sounds. SKIN: Skin is clear with no lesions or rashes and otherwise unremarkable. NEUROLOGIC: Patient is alert and oriented x3. Cranial nerves II through XII are grossly intact. Motor and sensory are also intact. Normal speech, volume and content. Symmetrical smile. MUSCULOSKELETAL: Normal extremities with adequate strength and full range of motion. LYMPHATICS: No significant lymphadenopathy is noted PSYCHIATRIC: Normal psychiatric evaluation. Limitations: no limitations Course Vital Signs 10/05/21 10/05/21 14:18 17:46 Temperature 98.7 F 97.8 F Pulse Rate 102 H 85 Respiratory 20 16 Rate Blood Pressure 134/66 147/90 O2 Sat by Pulse 99 100 Oximetry Medical Decision Making - Medical Decision Making EKG shows sinus rhythm at 94 bpm TN interval is 175 QRS is 90 QT interval 336 QTC is 388. Patient's EKG shows no ST segment elevation or depression. Patient's heart score of 1 and a negative troponin. Patient's second troponin was negative. I spoke with the patient about follo wing up she agreed to follow-up to get a stress test and she did not want to stay anyhow and patient was comfortable going home. - Lab Data Result diagrams: 10/05/21 14:34 10/05/21 14:34 Lab Results 10/05/21 10/05/21 10/05/21 Range/Units 14:34 14:34 14:34 WBC 12.4 H (3.8-10.6) k/uL RBC 4.81 (3.80-5.40) m/uL Hgb 14.3 (11.4-16.0) gm/dL Hct 44.4 (34.0-46.0) % MCV 92.4 (80.0-100.0) fL MCH 29.8 (25.0-35.0) pg MCHC 32.2 (31.0-37.0) g/dL RDW 13.7 (11.5-15.5) % Plt Count 376 (150-450) k/uL MPV 8.5 Neutrophils % 69 % Lymphocytes % 22 % Monocytes % 6 % Eosinophils % 2 % Basophils % 0 % Neutrophils # 8.5 H (1.3-7.7) k/uL Lymphocytes # 2.7 (1.0-4.8) k/uL Monocytes # 0.7 (0-1.0) k/uL Eosinophils # 0.3 (0-0.7) k/uL Basophils # 0.0 (0-0.2) k/uL PT 10.5 (9.0-12.0) sec INR 1.0 (<1.2) APTT 26.8 (22.0-30.0) sec Sodium 135 L (137-145) mmol/L Potassium 4.2 (3.5-5.1) mmol/L Chloride 103 (98-107) mmol/L Carbon Dioxide 27 (22-30) mmol/L Anion Gap 5 mmol/L BUN 13 (7-17) mg/dL Creatinine 0.76 (0.52-1.04) mg/dL Est GFR (CKD-EPI)AfAm >90 (>60 ml/min/1.73 sqM) Est GFR (CKD-EPI)NonAf >90 (>60 ml/min/1.73 sqM) Glucose 101 H (74-99) mg/dL Calcium 9.5 (8.4-10.2) mg/dL Magnesium 1.9 (1.6-2.3) mg/dL Total Bilirubin 0.7 (0.2-1.3) mg/dL AST 23 (14-36) U/L ALT 20 (4-34) U/L Alkaline Phosphatase 100 (38-126) U/L Troponin I (0.000-0.034) ng/mL Total Protein 7.6 (6.3-8.2) g/dL Albumin 4.3 (3.5-5.0) g/dL 10/05/21 10/05/21 Range/Units 14:34 18:39 WBC (3.8-10.6) k/uL RBC (3.80-5.40) m/uL Hgb (11.4-16.0) gm/dL Hct (34.0-46.0) % MCV (80.0-100.0) fL MCH (25.0-35.0) pg MCHC (31.0-37.0) g/dL RDW (11.5-15.5) % Plt Count (150-450) k/uL MPV Neutrophils % % Lymphocytes % % Monocytes % % Eosinophils % % Basophils % % Neutrophils # (1.3-7.7) k/uL Lymphocytes # (1.0-4.8) k/uL Monocytes # (0-1.0) k/uL Eosinophils # (0-0.7) k/uL Basophils # (0-0.2) k/uL PT (9.0-12.0) sec INR (<1.2) APTT (22.0-30.0) sec Sodium (137-145) mmol/L Potassium (3.5-5.1) mmol/L Chloride (98-107) mmol/L Carbon Dioxide (22-30) mmol/L Anion Gap mmol/L BUN (7-17) mg/dL Creatinine (0.52-1.04) mg/dL Est GFR (CKD-EPI)AfAm (>60 ml/min/1.73 sqM) Est GFR (CKD-EPI)NonAf (>60 ml/min/1.73 sqM) Glucose (74-99) mg/dL Calcium (8.4-10.2) mg/dL Magnesium (1.6-2.3) mg/dL Total Bilirubin (0.2-1.3) mg/dL AST (14-36) U/L ALT (4-34) U/L Alkaline Phosphatase (38-126) U/L Troponin I <0.012 <0.012 (0.000-0.034) ng/mL Total Protein (6.3-8.2) g/dL Albumin (3.5-5.0) g/dL Disposition Clinical Impression: Chest pain Disposition: HOME SELF-CARE Condition: Good Instructions (If sedation given, give patient instructions): Chest Pain (ED) Is patient prescribed a controlled substance at d/c from ED?: No Referrals: Davie Putnam DO [Primary Care Provider] - 1-2 days Time of Disposition: 19:42
== END 2021-10-05 19:57 | disposition home or self-care (01) ==
LOC: EC 13:34
DX: R07.9 Chest pain, unspecified (principal); I10 Essential (primary) hypertension; F32.A Depression, unspecified; Z79.899 Other long term (current) drug therapy
CPT/HCPCS: 36415; 80053; 83735; 84484; 85025; 85610; 85730; 93005; 99285

== ENCOUNTER → 2021-12-22 | Outpatient (CLI) | payer OTHER ==
[2021-12-22 18:26] LABS: T4, Free (Free Thyroxine) 1.15 ng/dL (0.800-1.800)
== END | disposition home or self-care (01) ==
LOC: LABWHC1 10:14
PROVIDERS: ATTEND Internal Medicine Clinical Cardiac Electrophysiology
DX: I08.1 Rheumatic disorders of both mitral and tricuspid valves (principal); R07.9 Chest pain, unspecified
CPT/HCPCS: 36415; 84439; 84443

== ENCOUNTER → 2021-12-22 | Outpatient (CLI) | payer BC, OTHER ==
--- NOTE | 2021-12-22 10:58 | CA ---
Transthoracic Echo Report Name: Dang Jesus Age: 41 Gender: F : 1980 Exam Date: 12/22/2021 09:54 Exam Location: [facility] Ht (in): 63 Wt (lb): 320 Ordering Physician: Davie Putnam DO Attending/Referring Phys: County Demonstrator Radha Marinelli RDCS Procedure CPT: Indications: R07.9 CHEST PAIN Cardiac Hx: Technical Quality: Good Contrast 1: Total Dose (mL): Contrast 2: Total Dose (mL): MEASUREMENTS (Male / Female) Normal Values 2D ECHO LV Diastolic Diameter PLAX 4.7 cm 4.2 - 5.9 / 3.9 - 5.3 cm LV Systolic Diameter PLAX 2.6 cm IVS Diastolic Thickness 1.1 cm 0.6 - 1.0 / 0.6 - 0.9 cm LVPW Diastolic Thickness 0.9 cm 0.6 - 1.0 / 0.6 - 0.9 cm LV Relative Wall Thickness 0.4 RV Internal Dim ED PLAX 2.5 cm LA Volume 41.6 cm??? 18 - 58 / 22 - 52 cm??? M-MODE Aortic Root Diameter MM 3.4 cm LA Systolic Diameter MM 3.4 cm LA Ao Ratio MM 1.0 MV E Point Septal Separation 0.9 cm AV Cusp Separation MM 2.2 cm DOPPLER AV Peak Velocity 124.1 cm/s AV Peak Gradient 6.2 mmHg MV Area PHT 4.7 cm??? Mitral E Point Velocity 79.9 cm/s Mitral A Point Velocity 73.3 cm/s Mitral E to A Ratio 1.1 MV Deceleration Time 162.6 ms MV E' Velocity 8.6 cm/s Mitral E to MV E' Ratio 9.3 TR Peak Velocity 135.6 cm/s TR Peak Gradient 7.4 mmHg Right Ventricular Systolic Press 12.1 mmHg FINDINGS Left Ventricle Mildly increased septal wall thickness. Normal Left ventricular size, wall thickness, systolic function with no obvious regional wall motion abnormalities. Normal Left ventricular diastolic filling pattern. Left ventricular ejection fraction is estimated at 55-60 %. Right Ventricle The right ventricle is normal in size and function. Right Atrium The right atrium is normal in size. Left Atrium The left atrium is normal in size. Mitral Valve Structurally normal mitral valve without significant stenosis or prolapse. There is a trace mitral regurgitation. Aortic Valve Structurally normal aortic valve without significant sclerosis or stenosis. There is no aortic regurgitation. Tricuspid Valve Structurally normal tricuspid valve without significant stenosis. Pulmonary artery systolic pressure is normal. Trace tricuspid regurgitation. Pulmonic Valve Structurally normal pulmonic valve without significant stenosis. There is no pulmonic regurgitation. Pericardium Normal pericardium without effusion. Aorta Normal aortic root dimension. CONCLUSIONS Mild LVH Normal left ventricular ejection fraction 55-60% Trace mitral regurgitation Normal RVSP Previewed by: Dr. Black Avery DO (Electronically Signed) Final Date: 22 December 2021 10:58
--- NOTE | 2021-12-22 13:12 | CA ---
Exercise Stress Test Report Name: Dang Jesus Exam Date: 12/22/2021 09:18 Exam Location: [facility] Ht (in): 63 Wt (lb): 320 BSA: 2.36 Ordering Phys: Davie Putnam DO Referring Phys: JAYLYN, Technologist: Davie Rascon Age: 41 Gender: F : 1980 Procedure CPT: Indications: R07.9 CHEST PAIN ICD-10 Codes: Patient History: Chest pain, Palpitations, Hypertension. Medications: Xywav, Labatalol, Aderall, Aspirin Meds past 24 hrs: Pretest Chest Pain: No chest pain STRESS TEST Rich Protocol Exercise Duration (min:sec): 06:[address] Depressions (mm): Angina Score: Barnes Score: Resting HR (bpm): 90 Peak HR (bpm): 164 Resting BP (mmHg): 141 / 89 Peak BP (mmHg): 217 / 56 MPHR: 180 Target HR: 153 % MPHR: 91 METS: 7.1 Total Dose: Peak Dose: Atropine: Double Product: 89296 BP Response: Stress Termination: Reached target heart rate, Fitgue Stress Symptoms: No chest pain or symptoms Stress Summary: ECG ANALYSIS Resting ECG: Stress ECG: CONCLUSIONS Patient underwent exercise stress EKG with a Rich protocol treadmill stress test. Patient exercised into Stage 2 for a total of 6 minutes reaching a total of 7.1 METS. Patient's maximum heart rate was 164 which represented 91 % age-predicted maximum heart rate. Stress EKG findings: At baseline patient's EKG showed normal sinus rhythm, normal axis, no significant ST or T wave abnormalities. At peak exercise, EKG showed no significant change from baseline. Conclusions: 1. Normal EKG response to exercise without evidence of inducible ischemia. 2. Fair exercise capacity. Dr. Black Avery DO (Electronically Signed) Final Date: 22 December 2021 13:11
== END | disposition home or self-care (01) ==
LOC: RADNMMAIN 08:41
PROVIDERS: ATTEND Family Medicine
DX: I08.1 Rheumatic disorders of both mitral and tricuspid valves (principal)
CPT/HCPCS: 93017; 93306

== ENCOUNTER 2023-05-14 21:28 | Emergency (ER) | payer OTHER ==
--- NOTE | 2023-05-14 22:13 | XR ---
EXAMINATION TYPE: XR shoulder complete LT DATE OF EXAM: 05/14/2023 9:50 PM CLINICAL INDICATION:Female, 43 years old with history of pain; PHH COMPARISON: None TECHNIQUE: XR shoulder complete LT; shoulder was examined in AP, internally rotated and scapular Y p rojections. FINDINGS: No evidence of acute osseous pathology, joint dislocation, or soft tissue swelling. The remaining por tions of the visualized chest are unremarkable. IMPRESSION: No acute osseous pathology.
[2023-05-14] MEDS ORDERED: KETOROLAC 15 MG/ML 1 ML VIAL IM STA (22:41)
[2023-05-14] MEDS ORDERED: DEXAMETHASONE SOD PHOSPHATE 10 MG/ML 1 ML VIAL IM STA (22:41)
--- NOTE | 2023-05-14 22:41 | ED ---
Upper Extremity HPI - General Chief Complaint: Extremity Injury, Upper Stated Complaint: left shoulder pain Source: patient Mode of arrival: ambulatory Limitations: no limitations - History of Present Illness Initial Comments: 43-year-old female presenting with chief complaint of left shoulder pain. Patient states that she woke up on Monday and thought that she slept in a position that she "slept on it wrong". Patient states that the pain has persisted. She states "I feel a knot in my shoulder/back." Patient has some soreness to the left side of the neck. She admits to some numbness and tingling that radiates down to the index and middle finger. No injury or trauma. No weakness. - Related Data Home Medications Medication Instructions Recorded Confirmed Labetalol HCl 100 mg PO DAILY 10/04/17 10/05/21 Benzoyl Peroxide [Benzoyl Peroxide 1 applic TOPICAL BID PRN 10/05/21 10/05/21 Cleanser] Cholecalciferol [Vitamin D3 (25 25 mcg PO DAILY 10/05/21 10/05/21 Mcg = 1000 Iu)] Dextroamphetamine/Amphetamine 20 mg PO DAILY 10/05/21 10/05/21 [Adderall] [place]-3 Fatty Acids/Fish Oil [Fish 1 cap PO DAILY 10/05/21 10/05/21 Oil 1,000 mg Softgel] Xywav 0.5gm/Ml 4 gm PO DIRECTED 10/05/21 10/05/21 Previous Rx's Medication Instructions Recorded Cyclobenzaprine [Flexeril] 10 mg PO HS PRN #10 tab 05/14/23 methylPREDNISolone Dose Pack 4 mg PO DIRECTED #1 packet 05/14/23 [Medrol Dose Pack] Allergies Allergy/AdvReac Type Severity Reaction Status Date / Time No Known Allergies Allergy Verified 10/05/21 19:15 Review of Systems ROS Statement: Those systems with pertinent positive or pertinent negative responses have been documented in the HPI. ROS Other: All systems not noted in ROS Statement are negative. Past Medical History Past Medical History: Hypertension Additional Past Medical History / Comment(s): narcolepsy History of Any Multi-Drug Resistant Organisms: None Reported Past Surgical History: Cholecystectomy, Tonsillectomy Additional Past Surgical History / Comment(s): hx of narcolepsy Past Psychological History: Depression Smoking Status: Never smoker Past Alcohol Use History: None Reported Past Drug Use History: None Reported, Marijuana - Past Family History Mother Additional Family Medical History / Comment(s): mother hypertension General Exam Limitations: no limitations General appearance: alert, in no apparent distress Head exam: Present: atraumatic, normocephalic, normal inspection Eye exam: Present: normal appearance, EOMI Neck exam: Present: normal inspection, tenderness (Left-sided paraspinal muscle tenderness), full ROM Respiratory exam: Absent: respiratory distress Back exam: Present: normal inspection, muscle spasm Neurological exam: Present: alert, oriented X3 Psychiatric exam: Present: normal affect, normal mood Skin exam: Present: warm, dry, intact, normal color. Absent: rash Course Vital Signs 05/14/23 05/14/23 21:35 23:21 Temperature 97.9 F 97.6 F Pulse Rate 81 84 Respiratory 16 18 Rate Blood Pressure 160/96 145/80 O2 Sat by Pulse 99 97 Oximetry Medical Decision Making - Medical Decision Making Was pt. sent in by a medical professional or institution (, PA, PROFESSIONAL BASS FISHERMAN, urgent care, hospital, or intermediate...) When possible be specific @ -No Did you speak to anyone other than the patient for history (EMS, parent, family, police, friend...)? What history was obtained from this source @ -No Did you review nursing and triage notes (agree or disagree)? Why? @ -I reviewed and agree with nursing and triage notes Were old charts reviewed (outside hosp., previous admission, EMS record, old EKG, old radiological studies, urgent care reports/EKG's, intermediate records)? Report findings @ -No old charts were reviewed Differential Diagnosis (chest pain, altered mental status, abdominal pain women, abdominal pain men, vaginal bleeding, weakness, fever, dyspnea, syncope, headache, dizziness, GI bleed, back pain, seizure, CVA, palpatations, mental health, musculoskeletal)? @ -Differential Musculoskeletal Muscular strain, contusion, ligament sprain, fracture, arthritis, septic arthritis, bursitis, cellulitis, muscle spasm, nerve compression, DVT, arterial occlusion, herpes zoster, electrolyte abnormality, tumor.... This is not meant to be in all inclusive list EKG interpreted by me (3pts min.). @ -As above X-rays interpreted by me (1pt min.). @ -X-ray shows no fracture or dislocation CT interpreted by me (1pt min.). @ -None done U/S interpreted by me (1pt. min.). @ -None done What testing was considered but not performed or refused? (CT, X-rays, U/S, labs)? Why? @ -None What meds were considered but not given or refused? Why? @ -None Did you discuss the management of the patient with other professionals (professionals i.e. Dr., PA, PROFESSIONAL BASS FISHERMAN, lab, RT, psych nurse, social media community manager, rigging slinger, teacher, community chest officer, bottle caser)? Give summary @ -No Was smoking cessation discussed for >3mins.? @ -No Was critical care preformed (if so, how long)? @ -No Were there social determinants of health that impacted care today? How? (Homelessness, low income, unemployed, alcoholism, drug addiction, transportation, low edu. Level, literacy, decrease access to med. care, long term, rehab)? @ -No Was there de-escalation of care discussed even if they declined (Discuss DNR or withdrawal of care, Hospice)? DNR status @ -No What co-morbidities impacted this encounter? (DM, HTN, Smoking, COPD, CAD, Cancer, CVA, ARF, Chemo, Hep., AIDS, mental health diagnosis, sleep apnea, morbid obesity)? @ -None Was patient admitted / discharged? Hospital course, mention meds given and route, prescriptions, significant lab abnormalities, going to OR and other pertinent info. @ -43-year-old female presenting with chief complaint of left shoulder pain. She admits to some numbness and tingling radiating down the arm. On physical examination muscle spasm is palpated. Patient will be driving herself home today. She is given Toradol Decadron and provided with a starter pack of cyclobenzaprine for home. Also provided with Medrol Dosepak. Follow-up with PCP. Report back to ER with any new or worsening symptoms. Discussed return parameters and answered all questions. Patient conveyed verbal understanding and agreed to the plan. I discussed this case in detail with my attending Dr. Caldwell Undiagnosed new problem with uncertain prognosis? @ -No Drug Therapy requiring intensive monitoring for toxicity (Heparin, Nitro, Insulin, Cardizem)? @ -No Were any procedures done? @ -No Diagnosis/symptom? @ -Muscle spasm, paresthesia Acute, or Chronic, or Acute on Chronic? @ -Acute Uncomplicated (without systemic symptoms) or Complicated (systemic symptoms)? @ -Uncomplicated Side effects of treatment? @ -No Exacerbation, Progression, or Severe Exacerbation? @ -No Poses a threat to life or bodily function? How? (Chest pain, [place], AR, pneumonia, PE, COPD, DKA, ARF, appy, cholecystitis, CVA, Diverticulitis, Homicidal, Suicidal, threat to staff... and all critical care pts) @ -No Disposition Clinical Impression: Muscle spasm, Paresthesia Disposition: HOME SELF-CARE Condition: Good Instructions (If sedation given, give patient instructions): Paresthesia (ED), Muscle Spasm (ED) Additional Instructions: Follow-up with PCP. Report back to ER with any new or worsening symptoms. Take Motrin and Tylenol as needed. Take medication as prescribed. Do not take cyclobenzaprine before driving or operating heavy machinery as it may cause drowsiness. Prescriptions: Cyclobenzaprine [Flexeril] 10 mg PO HS PRN #10 tab PRN Reason: Spasms methylPREDNISolone Dose Pack [Medrol Dose Pack] 4 mg PO DIRECTED #1 packet Is patient prescribed a controlled substance at d/c from ED?: No Referrals: Davie Putnam DO [Primary Care Provider] - 1-2 days Time of Disposition: 22:41
[2023-05-14] MEDS ORDERED: CYCLOBENZAPRINE 10MG STARTER 3 TAB BTL PO STA (22:42)
[2023-05-14 23:29] VITALS: BP 145/80; PULSE 84; RESP 18; TEMP 97.6
== END 2023-05-14 23:21 | disposition home or self-care (01) ==
LOC: EC 21:28
DX: M62.838 Other muscle spasm (principal); R20.2 Paresthesia of skin; I10 Essential (primary) hypertension; F32.A Depression, unspecified; F12.90 Cannabis use, unspecified, uncomplicated; Z79.899 Other long term (current) drug therapy; Z90.49 Acquired absence of other specified parts of digestive tract
CPT/HCPCS: 73030; 99283; 96372 ×2; J1100; J1885

== ENCOUNTER 2023-05-16 13:25 | Emergency (ER) | payer OTHER ==
[2023-05-16 13:39] VITALS: RESP 18; TEMP 98.2
--- NOTE | 2023-05-16 13:55 | ED ---
Back Pain HPI - General Chief Complaint: Back Pain/Injury Stated Complaint: back pain Time Seen by Provider: 05/16/23 13:45 Source: patient, RN notes reviewed Limitations: no limitations - History of Present Illness Initial Comments: Patient's 43-year-old female presented to the ER with a chief complaint of left shoulder pain. Patient was seen on 05/14/2023 for this similar complaint. Patient was sent home with a Medrol Dosepak and Flexeril. Patient states these have not touched her pain. Patient reports her pain has been a constant 8/10 since her last ER visit. Patient states the pain is now started to wrap around her left chest into her breast area. She describes it similarly to shingles that she has had in the past. She reports a numbness that extends into her left second finger and wraps around her elbow up into her neck. She states the pain is now wrapping around to her left ribs. Denies any rash or fevers. Denies any recent or distant trauma or weakness. Patient states she is unable to get into her PCP until next week. - Related Data Home Medications Medication Instructions Recorded Confirmed Labetalol HCl 100 mg PO DAILY 10/04/17 10/05/21 Dextroamphetamine/Amphetamine 30 mg PO DAILY 05/16/23 05/16/23 [Adderall Xr 30 mg Capsule] Ibuprofen [Motrin] 800 mg PO HS PRN 05/16/23 05/16/23 Previous Rx's Medication Instructions Recorded Cyclobenzaprine [Flexeril] 10 mg PO HS PRN #10 tab 05/14/23 methylPREDNISolone Dose Pack 4 mg PO DIRECTED #1 packet 05/14/23 [Medrol Dose Pack] Allergies Allergy/AdvReac Type Severity Reaction Status Date / Time No Known Allergies Allergy Verified 05/16/23 14:38 Review of Systems ROS Statement: Those systems with pertinent positive or pertinent negative responses have been documented in the HPI. ROS Other: All systems not noted in ROS Statement are negative. Past Medical History Past Medical History: Hypertension Additional Past Medical History / Comment(s): narcolepsy History of Any Multi-Drug Resistant Organisms: None Reported Past Surgical History: Cholecystectomy, Tonsillectomy Additional Past Surgical History / Comment(s): hx of narcolepsy Past Psychological History: Depression Smoking Status: Never smoker Past Alcohol Use History: None Reported Past Drug Use History: None Reported, Marijuana - Past Family History Mother Additional Family Medical History / Comment(s): mother hypertension General Exam Limitations: no limitations General appearance: alert, in no apparent distress Neck exam: Present: normal inspection, tenderness (left neck and shoulder) Respiratory exam: Present: normal lung sounds bilaterally. Absent: respiratory distress, wheezes, rales, rhonchi, stridor Cardiovascular Exam: Present: regular rate, normal rhythm, normal heart sounds. Absent: systolic murmur, diastolic murmur, rubs, gallop, clicks Extremities exam: Present: normal inspection, full ROM Back exam: Present: normal inspection, tenderness (bilateral midback ), muscle spasm (left mid back) Neurological exam: Present: alert Skin exam: Present: warm, dry, normal color Course Vital Signs 05/16/23 13:31 Temperature 98.2 F Pulse Rate 72 Respiratory 18 Rate Blood Pressure 147/96 O2 Sat by Pulse 98 Oximetry Medical Decision Making - Medical Decision Making Was pt. sent in by a medical professional or institution (, PA, SALES REPRESENTATIVE [employer], urgent care, hospital, or residential...) When possible be specific @ -No Did you speak to anyone other than the patient for history (EMS, parent, family, police, friend...)? What history was obtained from this source @ -No Did you review nursing and triage notes (agree or disagree)? Why? @ -I reviewed and agree with nursing and triage notes Were old charts reviewed (outside hosp., previous admission, EMS record, old EKG, old radiological studies, urgent care reports/EKG's, residential records)? Report findings @ -Yes, ER note from 05/14/2023. Patient underwent left shoulder x-ray which was negative for any acute fractures or dislocations. Patient was sent home on Medrol Dosepak and Flexeril. Differential Diagnosis (chest pain, altered mental status, abdominal pain women, abdominal pain men, vaginal bleeding, weakness, fever, dyspnea, syncope, headache, dizziness, GI bleed, back pain, seizure, CVA, palpatations, mental health, musculoskeletal)? @ -Differential Back Pain: Strain, zoster, cauda equina syndrome, epidural abscess, vertebral osteomyelitis, discitis, fracture, subluxation, disc herniation, DJD, spinal stenosis, dissection, AAA, pancreatitis, peptic ulcer disease, pyelonephritis, kidney stone, this is not meant to be an all-inclusive list.ble EKG interpreted by me (3pts min.). @ -None X-rays interpreted by me (1pt min.). @ -X-rays of cervical spine showed degenerative disc disease at C5-C6. CT interpreted by me (1pt min.). @ -None done U/S interpreted by me (1pt. min.). @ -None done What testing was considered but not performed or refused? (CT, X-rays, U/S, labs)? Why? @ -None What meds were considered but not given or refused? Why? @ -None Did you discuss the management of the patient with other professionals (professionals i.e. , PA, SALES REPRESENTATIVE [employer], lab, RT, psych nurse, social services technician, fashion buyer, teacher, textile technical officer, watch caser)? Give summary @ -No Was smoking cessation discussed for >3mins.? @ -No Was critical care preformed (if so, how long)? @ -No Were there social determinants of health that impacted care today? How? (Home lessness, low income, unemployed, alcoholism, drug addiction, transportation, low edu. Level, literacy, decrease access to med. care, [facility], rehab)? @ -No Was there de-escalation of care discussed even if they declined (Discuss DNR or withdrawal of care, Hospice)? DNR status @ -No What co-morbidities impacted this encounter? (DM, HTN, Smoking, COPD, CAD, Cancer, CVA, ARF, Chemo, Hep., AIDS, mental health diagnosis, sleep apnea, morbid obesity)? @ -None Was patient admitted / discharged? Hospital course, mention meds given and route, prescriptions, significant lab abnormalities, going to OR and other pertinent info. @ -Patient is a 43-year-old female presenting to the ER with a chief complaint of numbness and pain in her left arm. Patient was last seen here 05/14/2023. Today in the ER she was given ketorolac IM and underwent cervical neck xrays significant for moderate degenerative disc narrowing at C5-C6. Patient will be discharged to follow up with PCP and orthopedics. Patient also be discharged with [place] starter pack. Undiagnosed new problem with uncertain prognosis? @ -No Drug Therapy requiring intensive monitoring for toxicity (Heparin, Nitro, Insulin, Cardizem)? @ -No Were any procedures done? @ -No Diagnosis/symptom? @ -Disc space narrowing at C5-C6 Acute, or Chronic, or Acute on Chronic? @ -Acute on chronic Uncomplicated (without systemic symptoms) or Complicated (systemic symptoms)? @ -Uncomplicated Side effects of treatment? @ -No Exacerbation, Progression, or Severe Exacerbation? @ -No Poses a threat to life or bodily function? How? (Chest pain, [place], [place], pneumonia, PE, COPD, DKA, ARF, appy, cholecystitis, CVA, Diverticulitis, Homicidal, Suicidal, threat to staff... and all critical care pts) @ -No - Radiology Data Radiology results: report reviewed, image reviewed Disposition Clinical Impression: Degenerative disc disease Disposition: HOME SELF-CARE Condition: Stable Instructions (If sedation given, give patient instructions): Degenerative Disc Disease (ED) Additional Instructions: Please return to the Emergency Department if symptoms worsen or any other concerns. Patient educated on risks of taking [place] and Flexeril together. Patient expressed understanding. Is patient prescribed a controlled substance at d/c from ED?: No Referrals: Davie Putnam DO [Primary Care Provider] - 1-2 days Time of Disposition: 15:18
[2023-05-16] MEDS ORDERED: KETOROLAC 15 MG/ML 1 ML VIAL IM STA (14:01)
--- NOTE | 2023-05-16 14:26 | XR ---
EXAMINATION TYPE: XR cervical spine comp DATE OF EXAM: 05/16/2023 CLINICAL HISTORY: pain COMPARISON: NONE TECHNIQUE: Frontal, lateral, oblique, swimmers, and open mouth view of the cervical spine are obtaine d. FINDINGS: The cervical spine is visualized in its entirety from C1 thru the top of T1 level. It is s atisfactory in alignment without evidence of acute fracture or dislocation. The pre-vertebral soft t issue appears within normal limits. Degenerative disc space narrowing moderate in degree at C5-6. Timothy tral and dorsal spondylosis with mild foraminal encroachment seen bilaterally. The C1-C2 articulation is unremarkable on the open mouth view. IMPRESSION: No acute fracture or dislocation is seen in the cervical spine.ICD 10 NO FRACTURE, INITI AL EVALUATION
[2023-05-16] MEDS ORDERED: ACET/COD 300 MG/30 MG STARTER PACK 6 TAB BTL PO STA (15:10)
[2023-05-16 15:40] VITALS: BP 138/83; PULSE 68
== END 2023-05-16 15:24 | disposition home or self-care (01) ==
LOC: EC 13:25
DX: M50.322 Other cervical disc degeneration at C5-C6 level (principal); I10 Essential (primary) hypertension; F32.A Depression, unspecified; F12.90 Cannabis use, unspecified, uncomplicated; Z79.899 Other long term (current) drug therapy
CPT/HCPCS: 72050; 99284; 96372; J1885

== ENCOUNTER → 2023-07-21 | Outpatient (CLI) | payer OTHER ==
--- NOTE | 2023-07-21 16:47 | MR ---
EXAMINATION TYPE: MR cervical spine wo con DATE OF EXAM: 07/21/2023 3:08 PM CLINICAL INDICATION:Female, 43 years old with history of M54.2 CERVICALGIA; PHH, Neck pain that radia berna down left arm to fingers. COMPARISON: 05/16/2023. TECHNIQUE: Multi planar, multi sequence imaging was performed utilizing: T1-weighted, T2-weighted, an d turbo inversion recovery imaging of the cervical spine. IV Contrast: (none if empty) FINDINGS: Alignment: The cervical vertebral bodies have preserved heights. Alignment is within normal limits gi velma patient positioning. Bones: Scattered Modic endplate changes with osteophytes and disc space narrowing. Multilevel degener ative disc disease is noted and most pronounced at the C5-C7 vertebral levels. Cord: Cord signal at the level of C5-C6. The remainder of the cord signal is normal. Discs: Multilevel disc desiccation is present. C2-C3: No significant disc pathology. The spinal canal is patent. Bilateral facet and uncovertebral joint arthropathy are present with mild left neural foraminal stenosis. The right neural foramen is p atent. C3-C4: No significant disc pathology. The spinal canal is patent. Bilateral facet and uncovertebral joint arthropathy are present with mild left neural foraminal stenosis. The right neural foramen is p atent. C4-C5: No significant disc pathology. The spinal canal is patent. Bilateral facet and uncovertebral joint arthropathy are present with mild to moderate right and mild left neural foraminal stenosis. C5-C6: A disc osteophyte complex is present with severe spinal canal stenosis. Bilateral facet and u ncovertebral joint arthropathy are present with moderate to severe bilateral neural foraminal stenosi s. C6-C7: A disc osteophyte complex is present with moderate spinal canal stenosis. Bilateral facet and uncovertebral joint arthropathy are present with moderate bilateral neural foraminal stenosis. C7-T1: No significant disc pathology. The spinal canal is patent. No neural foraminal stenosis. Other: None. IMPRESSION: 1. Severe spinal canal stenosis at C5-C6 secondary to disc osteophyte complex with early cord signal posteriorly and somewhat slightly more left of midline. Neurosurgical consultation recommended. 2. Moderate degeneration with associated osteoarthritic changes worse at C5-C6 and C6-C7. Neural fora yehuda stenosis of at least moderate to severe C5-C6 bilaterally
== END | disposition home or self-care (01) ==
LOC: RADMRIMAIN 14:22
PROVIDERS: ATTEND Family Medicine
DX: M48.02 Spinal stenosis, cervical region (principal); M25.78 Osteophyte, vertebrae; M47.812 Spondylosis without myelopathy or radiculopathy, cervical region
CPT/HCPCS: 72141

== ENCOUNTER 2023-09-26 16:24 | Observation (INO) | payer OTHER ==
--- NOTE | 2023-09-26 16:44 | ED ---
General Adult HPI - General Chief complaint: Arrhythmia/Palpitations Stated complaint: Heart Palpitations Time Seen by Provider: 09/26/23 16:26 Source: patient, EMS, RN notes reviewed Mode of arrival: EMS Limitations: no limitations - History of Present Illness Initial comments: Patient is a 43-year-old female presenting to the emergency department from urgent care for dysrhythmia. Patient states she went there secondary to 1 month upper respiratory symptoms. Patient did have fevers however not recently. Patient has had cough congestion. While there patient did have palpitations. They did look up to the monitor and find tachycardia, A-fib at 141. Patient states palpitations have resolved. EMS states patient did have A-fib RVR as high as 180 in the rig. - Related Data Home Medications Medication Instructions Recorded Confirmed Labetalol HCl 100 mg PO DAILY 10/04/17 05/16/23 Dextroamphetamine/Amphetamine 30 mg PO DAILY 05/16/23 05/16/23 [Adderall Xr 30 mg Capsule] Ibuprofen [Motrin] 800 mg PO HS PRN 05/16/23 05/16/23 Previous Rx's Medication Instructions Recorded Cyclobenzaprine [Flexeril] 10 mg PO HS PRN #10 tab 05/14/23 methylPREDNISolone Dose Pack 4 mg PO DIRECTED #1 packet 05/14/23 [Medrol Dose Pack] Allergies Allergy/AdvReac Type Severity Reaction Status Date / Time No Known Allergies Allergy Verified 05/16/23 14:38 Review of Systems ROS Statement: Those systems with pertinent positive or pertinent negative responses have been documented in the HPI. ROS Other: All systems not noted in ROS Statement are negative. Constitutional: Denies: fever Eyes: Denies: eye pain ENT: Reports: congestion. Denies: ear pain Respiratory: Reports: cough Cardiovascular: Reports: palpitations. Denies: chest pain Endocrine: Reports: fatigue Gastrointestinal: Denies: abdominal pain Genitourinary: Denies: urgency Musculoskeletal: Denies: back pain Past Medical History Past Medical History: Hypertension Additional Past Medical History / Comment(s): narcolepsy History of Any Multi-Drug Resistant Organisms: None Reported Past Surgical History: Cholecystectomy, Tonsillectomy Additional Past Surgical History / Comment(s): hx of narcolepsy Past Psychological History: Depression Smoking Status: Never smoker Past Alcohol Use History: None Reported Past Drug Use History: None Reported, Marijuana - Past Family History Mother Additional Family Medical History / Comment(s): mother hypertension General Exam Limitations: no limitations General appearance: alert, in no apparent distress Head exam: Present: normocephalic Eye exam: Present: normal appearance Neck exam: Present: normal inspection Respiratory exam: Present: normal lung sounds bilaterally Cardiovascular Exam: Present: regular rate, normal rhythm Expanded Peripheral pulses: 2+: Radial (R), Radial (L), Dorsalis Pedis (R), Dorsalis Pedis (L) GI/Abdominal exam: Present: soft. Absent: tenderness Extremities exam: Present: normal inspection. Absent: pedal edema, calf tenderness Neurological exam: Present: alert Psychiatric exam: Present: normal affect, normal mood Skin exam: Present: normal color Course Vital Signs 09/26/23 09/26/23 09/26/23 16:28 16:34 17:34 Temperature 98.7 F Pulse Rate 106 H 101 H Pulse Rate [ 101 H Relays Draftsperson ] Respiratory 20 20 Rate Blood Pressure 151/92 140/88 O2 Sat by Pulse 97 98 Oximetry 09/26/23 09/26/23 18:00 19:30 Temperature Pulse Rate 90 89 Pulse Rate [ Relays [employer]sperson ] Respiratory 20 16 Rate Blood Pressure 140/100 125/77 O2 Sat by Pulse 98 99 Oximetry EKG Findings - EKG Results: EKG: interpreted by ERMD, sinus rhythm, normal axis, normal QRS, normal ST/T Medical Decision Making - Medical Decision Making Was pt. sent in by a medical professional or institution (EMILIANO Galdamez, [employer], urgent care, hospital, or penitentiary...) When possible be specific @ -Patient was sent from urgent care Did you speak to anyone other than the patient for history (EMS, parent, family, police, friend...)? What history was obtained from this source @ -EMS provides additional history including A-fib on the monitor and route Did you review nursing and triage notes (agree or disagree)? Why? @ -I reviewed and agree with nursing and triage notes Were old charts reviewed (outside hosp., previous admission, EMS record, old EKG, old radiological studies, urgent care reports/EKG's, penitentiary records)? Report findings @ -Previous chest x-ray reviewed Differential Diagnosis (chest pain, altered mental status, abdominal pain women, abdominal pain men, vaginal bleeding, weakness, fever, dyspnea, syncope, headache, dizziness, GI bleed, back pain, seizure, CVA, palpatations, mental health, musculoskeletal)? @ -MDM differential palpitate EKG interpreted by me (3pts min.). @ -As above X-rays interpreted by me (1pt min.). @ -Chest x-ray shows no acute process CT interpreted by me (1pt min.). @ -None done U/S interpreted by me (1pt. min.). @ -None done What testing was considered but not performed or refused? (CT, X-rays, U/S, labs)? Why? @ -None What meds were considered but not given or refused? Why? @ -None Did you discuss the management of the patient with other professionals (professionals i.e. , PA, [employer], lab, RT, psych nurse, social services specialist, lime kiln and recausticizing operator, teacher, administrative officer, medical case worker)? Give summary @ -Case was discussed with practitioner Maribell Mason, who will admit covering Dr. Putnam Was smoking cessation discussed for >3mins.? @ -No Was critical care preformed (if so, how long)? @ -No Were there social determinants of health that impacted care today? How? (Homelessness, low income, unemployed, alcoholism, drug addiction, transportation, low edu. Level, literacy, decrease access to med. care, long-term, rehab)? @ -No Was there de-escalation of care discussed even if they declined (Discuss DNR or withdrawal of care, Hospice)? DNR status @ -No What co-morbidities impacted this encounter? (DM, HTN, Smoking, COPD, CAD, Cancer, CVA, ARF, Chemo, Hep., AIDS, mental health diagnosis, sleep apnea, morbid obesity)? @ -None Was patient admitted / discharged? Hospital course, mention meds given and route, prescriptions, significant lab abnormalities, going to OR and other pertinent info. @ -Patient presents as a transfer from urgent care. Patient presented there for upper respiratory symptoms however developed palpitations and found to be in A-fib. Her A-fib has resolved without intervention. Patient will be admitted with cardiac consult Undiagnosed new problem with uncertain prognosis? @ -No Drug Therapy requiring intensive monitoring for toxicity (Heparin, Nitro, Insulin, Cardizem)? @ -No Were any procedures done? @ -No Diagnosis/symptom? @ -Influenza, A-fib Acute, or Chronic, or Acute on Chronic? @ -Acute, acute Uncomplicated (without systemic symptoms) or Complicated (systemic symptoms)? @ -Default Side effects of treatment? @ -No Exacerbation, Progression, or Severe Exacerbation? @ -No Poses a threat to life or bodily function? How? (Chest pain, [place], [place], pneumonia, PE, COPD, DKA, ARF, appy, cholecystitis, CVA, Diverticulitis, Homicidal, Suicidal, threat to staff... and all critical care pts) @ -No - Lab Data Result diagrams: 09/26/23 16:40 09/26/23 17:16 Lab Results 09/26/23 09/26/23 09/26/23 Range/Units 16:40 16:40 17:16 WBC 13.1 H (3.8-10.6) k/uL RBC 4.42 (3.80-5.40) m/uL Hgb 13.1 (11.4-16.0) gm/dL Hct 39.5 (34.0-46.0) % MCV 89.3 (80.0-100.0) fL MCH 29.7 (25.0-35.0) pg MCHC 33.2 (31.0-37.0) g/dL RDW 13.2 (11.5-15.5) % Plt Count 389 (150-450) k/uL MPV 8.2 Neutrophils % 78 % Lymphocytes % 13 % Monocytes % 5 % Eosinophils % 3 % Basophils % 0 % Neutrophils # 10.2 H (1.3-7.7) k/uL Lymphocytes # 1.7 (1.0-4.8) k/uL Monocytes # 0.6 (0-1.0) k/uL Eosinophils # 0.3 (0-0.7) k/uL Basophils # 0.0 (0-0.2) k/uL PT (10.0-12.5) sec INR (<1.2) APTT (22.0-30.0) sec Sodium (137-145) mmol/L Potassium (3.5-5.1) mmol/L Chloride (98-107) mmol/L Carbon Dioxide (22-30) mmol/L Anion Gap mmol/L BUN (7-17) mg/dL Creatinine (0.52-1.04) mg/dL Est GFR (CKD-EPI)AfAm (>60 ml/min/1.73 sqM) Est GFR (CKD-EPI)NonAf (>60 ml/min/1.73 sqM) Glucose (74-99) mg/dL Calcium (8.4-10.2) mg/dL Magnesium (1.6-2.3) mg/dL Total Bilirubin (0.2-1.3) mg/dL AST (14-36) U/L ALT (4-34) U/L Alkaline Phosphatase (38-126) U/L Troponin I <0.012 (0.000-0.034) ng/mL Total Protein (6.3-8.2) g/dL Albumin (3.5-5.0) g/dL TSH (0.465-4.680) mIU/L Free T4 (0.78-2.19) ng/dL Free T3 pg/mL (2.8-5.3) pg/ml Influenza Type A (PCR) Detected A (Not Detectd) Influenza Type B (PCR) Not Detected (Not Detectd) RSV (PCR) Not Detected (Not Detectd) SARS-CoV-2 (PCR) Not Detected (Not Detectd) 09/26/23 09/26/23 Range/Units 17:16 18:48 WBC (3.8-10.6) k/uL RBC (3.80-5.40) m/uL Hgb (11.4-16.0) gm/dL Hct (34.0-46.0) % MCV (80.0-100.0) fL MCH (25.0-35.0) pg MCHC (31.0-37.0) g/dL RDW (11.5-15.5) % Plt Count (150-450) k/uL MPV Neutrophils % % Lymphocytes % % Monocytes % % Eosinophils % % Basophils % % Neutrophils # (1.3-7.7) k/uL Lymphocytes # (1.0-4.8) k/uL Monocytes # (0-1.0) k/uL Eosinophils # (0-0.7) k/uL Basophils # (0-0.2) k/uL PT 10.5 (10.0-12.5) sec INR 0.9 (<1.2) APTT 27.1 (22.0-30.0) sec Sodium 138 (137-145) mmol/L Potassium 4.1 (3.5-5.1) mmol/L Chloride 107 (98-107) mmol/L Carbon Dioxide 25 (22-30) mmol/L Anion Gap 6 mmol/L BUN 16 (7-17) mg/dL Creatinine 0.70 (0.52-1.04) mg/dL Est GFR (CKD-EPI)AfAm >90 (>60 ml/min/1.73 sqM) Est GFR (CKD-EPI)NonAf >90 (>60 ml/min/1.73 sqM) Glucose 99 (74-99) mg/dL Calcium 8.8 (8.4-10.2) mg/dL Magnesium 1.8 (1.6-2.3) mg/dL Total Bilirubin 0.4 (0.2-1.3) mg/dL AST 26 (14-36) U/L ALT 18 (4-34) U/L Alkaline Phosphatase 93 (38-126) U/L Troponin I (0.000-0.034) ng/mL Total Protein 6.8 (6.3-8.2) g/dL Albumin 3.9 (3.5-5.0) g/dL TSH 1.730 (0.465-4.680) mIU/L Free T4 1.14 (0.78-2.19) ng/dL Free T3 pg/mL 3.6 (2.8-5.3) pg/ml Influenza Type A (PCR) (Not Detectd) Influenza Type B (PCR) (Not Detectd) RSV (PCR) (Not Detectd) SARS-CoV-2 (PCR) (Not Detectd) Disposition Clinical Impression: Atrial fibrillation, Influenza Disposition: ADMITTED IP TO THIS HOSP Is patient prescribed a controlled substance at d/c from ED?: No Referrals: Davie Putnam DO [Primary Care Provider] - 1-2 days Time of Disposition: 19:59
[2023-09-26 17:06] LABS: Basophils % (A) 0 %; Eosinophils # (A) 0.3 k/uL (0-0.7); Eosinophils % (A) 3 %; HCT 39.5 % (34.0-46.0); HGB 13.1 gm/dL (11.4-16.0); Lymphocytes # (A) 1.7 k/uL (1.0-4.8); Lymphocytes % (A) 13 %; MCH 29.7 pg (25.0-35.0); MCHC 33.2 g/dL (31.0-37.0); MCV 89.3 fL (80.0-100.0); Mean Platelet Volume 8.2; Monocytes # (A) 0.6 k/uL (0-1.0); Monocytes % (A) 5 %; Neutrophils # (A) 10.2 k/uL (1.3-7.7); Neutrophils % (A) 78 %; Platelet Count 389 k/uL (150-450); RBC 4.42 m/uL (3.80-5.40); RDW 13.2 % (11.5-15.5); WBC 13.1 k/uL (3.8-10.6)
[2023-09-26] MEDS: ASPIRIN 81 MG PO STA (17:06)
--- NOTE | 2023-09-26 17:47 | XR ---
EXAMINATION TYPE: XR chest 2V DATE OF EXAM: 09/26/2023 5:13 PM CLINICAL INDICATION:Female, 43 years old with history of dysrhythmia; H COMPARISON: Chest radiographs from 10/04/2017 TECHNIQUE: XR chest 2V Frontal and lateral views of the chest. FINDINGS: Lungs/Pleura: There is no evidence of pleural effusion, focal consolidation, or pneumothorax. Pulmonary vascularity: Unremarkable. Heart/mediastinum: Cardiomediastinal silhouette is enlarged and stable. Musculoskeletal: No acute osseous pathology. IMPRESSION: No acute cardiopulmonary disease/process.
[2023-09-26 18:06] LABS: ALT 18 U/L (4-34); AST 26 U/L (14-36); African American GFR (CKD) >90 (>60 ml/min/1.73 sqM); Albumin 3.9 g/dL (3.5-5.0); Alkaline Phosphatase 93 U/L (38-126); Anion Gap 6 mmol/L; Blood Urea Nitrogen 16 mg/dL (7-17); Calcium 8.8 mg/dL (8.4-10.2); Carbon Dioxide 25 mmol/L (22-30); Chloride 107 mmol/L (98-107); Glucose 99 mg/dL (74-99); Magnesium 1.8 mg/dL (1.6-2.3); Non-African American GFR(CKD) >90 (>60 ml/min/1.73 sqM); Potassium 4.1 mmol/L (3.5-5.1); Sodium 138 mmol/L (137-145); Total Bilirubin 0.4 mg/dL (0.2-1.3); Total Protein 6.8 g/dL (6.3-8.2)
[2023-09-26 18:24] LABS: T4, Free (Free Thyroxine) 1.14 ng/dL (0.78-2.19)
[2023-09-26 19:11] LABS: INR 0.9 (<1.2); Partial Thromboplastin Time 27.1 sec (22.0-30.0); Prothrombin Time 10.5 sec (10.0-12.5)
[2023-09-26] MEDS: IPRATROPIUM-ALBUTEROL 3 ML NEB INHALATION STA (20:05)
[2023-09-26] MEDS: ACETAMINOPHEN TAB 500 MG TAB PO STA (20:23)
[2023-09-27] MEDS: ACETAMINOPHEN TAB 325 MG TAB PO PRN (05:09)
[2023-09-27] MEDS ORDERED: IPRATROPIUM-ALBUTEROL 3 ML NEB INHALATION PRN (07:06)
--- NOTE | 2023-09-27 07:11 | P.HPIM ---
History of Present Illness This is a pleasant 43 years old female who presents initially because of cold symptoms that been going on for a few days, she has runny nose sore throat and coughing with some phlegm. Also she is complaining from fever, pain with fever and generalized bodyaches. She went to a walk-in clinic yesterday to check because she thinks her COVID was going into her chest, went up with a pulse ox for her there was tachycardia and EKG showed A-fib with RVR so she was referred to emergency room. On presentation she was mildly tachycardic around 106, currently heart rate is 96. She has a fever of 102. She is saturating well on room air. She has mild leukocytosis of 13.1. Rest of CBC is unremarkable INR 0.9, BMP and liver enzymes were unremarkable Troponin x 3 were negative less than 0.012. TSH is normal at 1.7, she tested positive for influenza A Chest x-ray is negative for acute process EKG showing sinus rhythm at a heart rate of 99 Review of Systems Review of systems CONSTITUTIONAL: No fever, no malaise, no fatigue. HEENT: No recent visual problems or hearing problems. Denied any sore throat. CARDIOVASCULAR: No orthopnea, PND, no palpitations, no syncope. PULMONARY: No shortness of breath, no cough, no hemoptysis. GASTROINTESTINAL: No diarrhea, no nausea, no vomiting, no abdominal pain. Normoactive bowel sounds. NEUROLOGICAL: No headaches, no weakness, no numbness. HEMATOLOGICAL: Denies any bleeding or petechiae. GENITOURINARY: Denies any burning micturition, frequency, or urgency. MUSCULOSKELETAL/RHEUMATOLOGICAL: Denies any joint pain, swelling, or any muscle pain. ENDOCRINE: Denies any polyuria or polydipsia. Past Medical History Past Medical History: Hypertension Additional Past Medical History / Comment(s): narcolepsy History of Any Multi-Drug Resistant Organisms: None Reported Past Surgical History: Cholecystectomy, Tonsillectomy Additional Past Surgical History / Comment(s): hx of narcolepsy Past Psychological History: Depression Smoking Status: Never smoker Past Alcohol Use History: None Reported Past Drug Use History: None Reported, Marijuana - Past Family History Mother Additional Family Medical History / Comment(s): mother hypertension Medications and Allergies Home Medications Medication Instructions Recorded Confirmed Type Labetalol HCl 100 mg PO DAILY 10/04/17 09/26/23 History Dextroamphetamine/Amphetamine 30 mg PO DAILY 05/16/23 09/26/23 History [Adderall Xr 30 mg Capsule] Cholecalciferol [Vitamin D3 (25 25 mcg PO DAILY 09/26/23 09/26/23 History Mcg = 1000 Iu)] [place]-3/Dha/Epa/Fish Oil [Fish Oil 1 cap PO DAILY 09/26/23 09/26/23 History 1,000 mg Softgel] Allergies Allergy/AdvReac Type Severity Reaction Status Date / Time No Known Allergies Allergy Verified 09/26/23 21:09 Physical Exam Vitals: Vital Signs Temp Pulse Pulse Resp BP Pulse Ox 09/27/23 05:00 102 F H 09/27/23 01:12 100.9 F H 09/26/23 23:39 86 18 112/72 99 09/26/23 20:12 88 09/26/23 20:05 99.8 F H 84 09/26/23 19:30 89 16 125/77 99 09/26/23 18:00 90 20 140/100 98 09/26/23 17:34 101 H 09/26/23 16:34 101 H 20 140/88 98 09/26/23 16:28 98.7 F 106 H 20 151/92 97 Intake and Output 09/26/23 09/26/23 09/27/23 14:59 22:59 06:59 Other: Weight 149.685 kg -GENERAL: The patient is alert and oriented x3, not in any acute distress. obese . Patient looks tired with malaise HEENT: Pupils are round and equally reacting to light. EOMI. No scleral icterus. No conjunctival pallor. Normocephalic, atraumatic. No pharyngeal erythema. No thyromegaly. CARDIOVASCULAR: S1 and S2 present. No murmurs, rubs, or gallops. PULMONARY: Chest is clear to auscultation, no wheezing , no crackles. ABDOMEN: Soft, nontender, nondistended, normoactive bowel sounds. No palpable organomegaly. MUSCULOSKELETAL: No joint swelling or deformity. EXTREMITIES: No cyanosis, clubbing, or pedal edema. NEUROLOGICAL: Gross neurological examination did not reveal any focal deficits. SKIN: No rashes. no petechiae. Results CBC & Chem 7: 09/26/23 16:40 09/26/23 17:16 Labs: Abnormal Lab Results - Last 24 Hours (Table) 09/26/23 09/26/23 Range/Units 16:40 16:40 WBC 13.1 H (3.8-10.6) k/uL Neutrophils # 10.2 H (1.3-7.7) k/uL Influenza Type A (PCR) Detected A (Not Detectd) Assessment and Plan Assessment: Acute influenza a infection with no evidence of pneumonia or hypoxia Febrile not secondary to above New onset A-fib with mild RVR, currently heart rate controlled. Obesity with BMI of 58.5. Plan: Start Tamiflu Heart rate is controlled Echocardiogram Cardiology consult and infectious disease consult Labs and medication were reviewed.. Continue same treatment. Continue with symptomatic treatment. Resume home medication. Monitor labs and vitals. DVT and GI prophylaxis. Further recommendations as per clinical course of the patient DVT prophylaxis: Subcutaneous heparin GI Prophylaxis: Pepcid PT/OT: Pending Prognosis is guarded
[2023-09-27 07:55] LABS: Basophils # (A) 0.1 k/uL (0-0.2); Basophils % (A) 1 %; Eosinophils # (A) 0.1 k/uL (0-0.7); Eosinophils % (A) 1 %; HCT 37.3 % (34.0-46.0); HGB 12.3 gm/dL (11.4-16.0); Lymphocytes # (A) 0.5 k/uL (1.0-4.8); Lymphocytes % (A) 8 %; MCH 29.5 pg (25.0-35.0); MCHC 32.9 g/dL (31.0-37.0); MCV 89.4 fL (80.0-100.0); Mean Platelet Volume 7.9; Monocytes # (A) 0.4 k/uL (0-1.0); Monocytes % (A) 6 %; Neutrophils # (A) 5.9 k/uL (1.3-7.7); Neutrophils % (A) 83 %; Platelet Count 298 k/uL (150-450); RBC 4.18 m/uL (3.80-5.40); RDW 13.4 % (11.5-15.5); WBC 7.1 k/uL (3.8-10.6)
[2023-09-27 08:38] LABS: African American GFR (CKD) >90 (>60 ml/min/1.73 sqM); Anion Gap 7 mmol/L; Blood Urea Nitrogen 11 mg/dL (7-17); Calcium 8.6 mg/dL (8.4-10.2); Carbon Dioxide 22 mmol/L (22-30); Chloride 106 mmol/L (98-107); Glucose 111 mg/dL (74-99); Non-African American GFR(CKD) >90 (>60 ml/min/1.73 sqM); Potassium 3.8 mmol/L (3.5-5.1); Sodium 135 mmol/L (137-145)
[2023-09-27] MEDS: NON FORMULARY DRUG (Dextroamphetamine/Amphetamine [Adderall Xr 30 Mg Capsule] 30 MG Cap.Er PO SCH (08:50)
[2023-09-27] MEDS: FAMOTIDINE 20 MG/2 ML VIAL IV SCH (08:50)
[2023-09-27] MEDS: LABETALOL 100 MG TAB PO SCH (08:50)
[2023-09-27] MEDS: HEPARIN SODIUM,PORCINE 5,000 UNIT/ML 1 ML VIAL SQ SCH (08:50)
[2023-09-27] MEDS: OSELTAMIVIR 75 MG CAP PO SCH (08:50)
[2023-09-27] MEDS: CHOLECALCIFEROL 25 MCG (1000 IU) TABLET PO SCH (08:50)
[2023-09-27] MEDS: ASPIRIN 325 MG TAB PO SCH (08:50)
[2023-09-27] MEDS ORDERED: NON FORMULARY DRUG (Omega-3/Dha/Epa/Fish Oil [Fish Oil 1,000 Mg Softgel] 1 EACH Capsule) PO SCH (09:00)
[2023-09-27] MEDS: guaiFENesin-DM 100-10MG/5ML 10 ML CUP PO PRN (09:38)
--- NOTE | 2023-09-27 09:40 | P.CRDCN ---
History of Present Illness History of present illness: HISTORY OF PRESENT ILLNESS: This is a 43-year-old female with a past medical history significant for hypertension, narcolepsy, and depression. We have been asked to see the patient in consultation for atrial fibrillation. Patient examined at the bedside in the emergency room. Patient presented to the hospital with complaints of feeling unwell. Patient was also found to be positive for the flu. Patient did have an episode of atrial fibrillation. However she has converted back to sinus mechanism and is maintaining sinus mechanism this morning. Vital signs are stable. DIAGNOSTICS: - EKG reveals sinus mechanism with no signs of acute ischemia. Telemetry tracings reveal atrial fibrillation. Bedside telemetry reveals sinus mechanism. - Chest xray negative for acute process. - Laboratory data: WBC 13.1. Hemoglobin 13.1. Platelet count 389. Sodium 138. Potassium 4.1. BUN 16. Creatinine 0.70. Magnesium 1.8. Troponin negative x 3. TSH 1.730. - Current home cardiac medications include labetalol 100 mg daily. - Most recent echocardiogram obtained in December 2021 reveals ejection fraction 55 to 60%, trace MR and trace TR. -Patient underwent Rich stress test in December 2021 which was negative for ischemia REVIEW OF SYSTEMS: At the time of my exam: CONSTITUTIONAL: Denies fever or chills. HEENT: Denies blurred vision, vision changes, or eye pain. Denies hemoptysis CARDIOVASCULAR: Denies chest pain. Denies orthopnea. Denies PND. Denies palpitations RESPIRATORY: Denies shortness of breath. GASTROINTESTINAL: Denies abdominal pain. Denies nausea or vomiting. HEMATOLOGIC: Denies bleeding disorders. GENITOURINARY: Denies any blood in urine. SKIN: Denies pruitis. Denies rash. PHYSICAL EXAM: VITAL SIGNS: Reviewed. GENERAL: Well-developed in no acute distress. HEENT: Head is normocephalic. Pupils are equal, round. Sclerae anicteric. Mucous membranes of the mouth are moist. Neck supple. No JVD or thyromegaly LUNGS: Respirations even and unlabored. Lungs essentially clear to auscultation bilaterally. HEART: Regular rate and rhythm. S1 and S2 heard. ABDOMEN: Soft. Nondistended. Nontender. EXTREMITIES: Normal range of motion. No clubbing or cyanosis. Peripheral pulses intact. No lower extremity edema NEUROLOGIC: Awake and alert. Oriented x 3. ASSESSMENT: Acute influenza A New onset atrial fibrillation, currently maintaining sinus mechanism Hypertension Narcolepsy History of depression Obstructive sleep apnea, does not use a CPAP at home Morbid obesity: BMI 58.5 PLAN: Add aspirin 81mg daily CHADVASC score of 2 (hypertension & female). No anticoagulation at this time per Dr. Jerez No beta marita at this time Will obtain 2D echo on an outpatient basis Patient to hop picker 30 day event monitor from the cardiology office upon discharge Patient may be discharged today from a cardiac standpoint Nurse practitioner note has been reviewed by physician. Signing provider agrees with the documented findings, assessment, and plan of care documented by BUGGY LOADER as a scribe. Past Medical History Past Medical History: Hypertension Additional Past Medical History / Comment(s): narcolepsy History of Any Multi-Drug Resistant Organisms: None Reported Past Surgical History: Cholecystectomy, Tonsillectomy Additional Past Surgical History / Comment(s): hx of narcolepsy Past Psychological History: Depression Smoking Status: Never smoker Past Alcohol Use History: None Reported Past Drug Use History: None Reported, Marijuana - Past Family History Mother Additional Family Medical History / Comment(s): mother hypertension Medications and Allergies Home Medications Medication Instructions Recorded Confirmed Type Labetalol HCl 100 mg PO DAILY 10/04/17 09/26/23 History Dextroamphetamine/Amphetamine 30 mg PO DAILY 05/16/23 09/26/23 History [Adderall Xr 30 mg Capsule] Cholecalciferol [Vitamin D3 (25 25 mcg PO DAILY 09/26/23 09/26/23 History Mcg = 1000 Iu)] [place]-3/Dha/Epa/Fish Oil [Fish Oil 1 cap PO DAILY 09/26/23 09/26/23 History 1,000 mg Softgel] Allergies Allergy/AdvReac Type Severity Reaction Status Date / Time No Known Allergies Allergy Verified 09/26/23 21:09 Physical Exam Vitals: Vital Signs Temp Pulse Pulse Resp BP Pulse Ox 09/27/23 06:00 98.1 F 96 18 116/65 97 09/27/23 05:00 102 F H 09/27/23 01:12 100.9 F H 09/26/23 23:39 86 18 112/72 99 09/26/23 20:12 88 09/26/23 20:05 99.8 F H 84 09/26/23 19:30 89 16 125/77 99 09/26/23 18:00 90 20 140/100 98 09/26/23 17:34 101 H 09/26/23 16:34 101 H 20 140/88 98 09/26/23 16:28 98.7 F 106 H 20 151/92 97 Intake and Output 09/26/23 09/27/23 09/27/23 22:59 06:59 14:59 Other: Weight 149.685 kg Results 09/27/23 07:35 09/27/23 07:35 Cardiac Enzymes 09/26/23 09/26/23 09/26/23 Range/Units 17:16 17:16 20:19 AST 26 (14-36) U/L Troponin I <0.012 <0.012 (0.000-0.034) ng/mL 09/26/23 Range/Units 23:56 AST (14-36) U/L Troponin I <0.012 (0.000-0.034) ng/mL Coagulation 09/26/23 Range/Units 18:48 PT 10.5 (10.0-12.5) sec APTT 27.1 (22.0-30.0) sec CBC 09/26/23 Range/Units 16:40 WBC 13.1 H (3.8-10.6) k/uL RBC 4.42 (3.80-5.40) m/uL Hgb 13.1 (11.4-16.0) gm/dL Hct 39.5 (34.0-46.0) % Plt Count 389 (150-450) k/uL Comprehensive Metabolic Panel 09/26/23 Range/Units 17:16 Sodium 138 (137-145) mmol/L Potassium 4.1 (3.5-5.1) mmol/L Chloride 107 (98-107) mmol/L Carbon Dioxide 25 (22-30) mmol/L BUN 16 (7-17) mg/dL Creatinine 0.70 (0.52-1.04) mg/dL Glucose 99 (74-99) mg/dL Calcium 8.8 (8.4-10.2) mg/dL AST 26 (14-36) U/L ALT 18 (4-34) U/L Alkaline Phosphatase 93 (38-126) U/L Total Protein 6.8 (6.3-8.2) g/dL Albumin 3.9 (3.5-5.0) g/dL Current Medications Generic Name Dose Route Start Last Admin Trade Name Freq PRN Reason Stop Dose Admin Acetaminophen 650 mg 09/27/23 05:05 09/27/23 05:09 Acetaminophen Tab 325 Mg Tab PO 650 mg Q6HR PRN Administration Fever and/ or Pain Albuterol/Ipratropium 3 ml 09/27/23 07:06 Ipratropium-Albuterol 3 Ml Neb INHALATION RT-QID PRN Shortness Of Breath Or Wheezing Aspirin 325 mg 09/27/23 09:00 Aspirin 325 Mg Tab PO DAILY ON LICENSE OF [facility] Cholecalciferol 25 mcg 09/27/23 09:00 Cholecalciferol 25 Mcg (1000 Iu) Tablet PO DAILY ON LICENSE OF [facility] Famotidine 20 mg 09/27/23 09:00 Famotidine 20 Mg/2 Ml Vial IV Q12HR ON LICENSE OF [facility] Guaifenesin/Dextromethorphan 10 ml 09/27/23 07:06 Guaifenesin-Dm 100-10mg/5ml 10 Ml Cup PO Q6HR PRN Cough Heparin Sodium (Porcine) 5,000 unit 09/27/23 09:00 Heparin Sodium,Porcine 5,000 Unit/Ml 1 Ml Vial SQ Q12HR ON LICENSE OF [facility] Labetalol HCl 100 mg 09/27/23 09:00 Labetalol 100 Mg Tab PO DAILY ON LICENSE OF [facility] Non-Formulary Medication 30 mg 09/27/23 09:00 Dextroamphetamine/Amphetamine [Adderall Xr 30 Mg Capsule] PO DAILY ON LICENSE OF [facility] Oseltamivir Phosphate 75 mg 09/27/23 08:00 Oseltamivir 75 Mg Cap PO 10/01/23 21:01 Q12HR ON LICENSE OF [facility] Protocol Intake and Output 09/26/23 09/27/23 09/27/23 22:59 06:59 14:59 Other: Weight 149.685 kg 09/26/23 16:40 09/26/23 17:16
[2023-09-27 11:56] LABS: Chol/HDL Ratio 3.46 Ratio; LDL Cholesterol,Calculated 113.9 mg/dL (0.0-131.0); VLDL Calculation 14.06 mg/dL (5.00-40.00)
[2023-09-27 15:40] VITALS: BP 139/87; PULSE 101; RESP 19; TEMP 102.7
--- NOTE | 2023-09-27 17:41 | CA ---
Transthoracic Echo Report Name: Dang Jesus Age: 43 Gender: F : 1980 Exam Date: 09/27/2023 11:23 Exam Location: [facility] Ht (in): 63 Wt (lb): 330 Ordering Physician: Jacob Morton DO Attending/Referring Phys: Hand Candy Cutter Reynold Coppola RDCS Procedure CPT: Indications: atrial fibrillation Cardiac Hx: Technical Quality: Contrast 1: Total Dose (mL): Contrast 2: Total Dose (mL): MEASUREMENTS (Male / Female) Normal Values 2D ECHO LV Diastolic Diameter PLAX 5.3 cm 4.2 - 5.9 / 3.9 - 5.3 cm LV Systolic Diameter PLAX 3.9 cm IVS Diastolic Thickness 0.9 cm 0.6 - 1.0 / 0.6 - 0.9 cm LVPW Diastolic Thickness 1.2 cm 0.6 - 1.0 / 0.6 - 0.9 cm LV Relative Wall Thickness 0.4 LVOT Diameter 2.3 cm Aortic Root Diameter 3.6 cm LA Systolic Diameter LX 4.2 cm 3.0 - 4.0 / 2.7 - 3.8 cm DOPPLER AV Peak Velocity 153.4 cm/s AV Peak Gradient 9.4 mmHg AV Mean Velocity 119.6 cm/s AV Mean Gradient 6.1 mmHg AV Velocity Time Integral 27.0 cm LVOT Peak Velocity 135.7 cm/s LVOT Peak Gradient 7.4 mmHg LVOT Velocity Time Integral 28.8 cm LVOT Stroke Volume 118.6 cm??? LVOT Stroke Volume Index 49.6 ml/m??? LVOT Cardiac Index 4024.5 cm???/min???m??? AV Area Cont Eq vti 4.4 cm??? AV Area Cont Eq pk 3.6 cm??? Mitral E Point Velocity 89.2 cm/s Mitral A Point Velocity 71.9 cm/s Mitral E to A Ratio 1.2 MV Deceleration Time 198.6 ms PV Peak Velocity 114.2 cm/s PV Peak Gradient 5.2 mmHg FINDINGS Left Ventricle Mildly increased posterior wall thickness. Left ventricular ejection fraction is estimated at 50-55 %. Normal left ventricular wall motion. No obvious regional wall motion abnormalities. Right Ventricle Normal right ventricular size. Right Atrium Normal right atrial size. Left Atrium Mildly increased left atrial diameter. Mitral Valve Trace mitral regurgitation. Aortic Valve Aortic valve not well visualized. Tricuspid Valve Trace tricuspid regurgitation. Pulmonic Valve No pulmonic regurgitation. Pericardium No pericardial effusion. Aorta Normal size aortic root. CONCLUSIONS . Normal LV function Previewed by: Dr. Devin Moore MD (Electronically Signed) Final Date: 27 September 2023 17:40
--- NOTE | 2023-09-27 22:11 | P.CONS ---
History of Present Illness - Reason for Consult Consult date: 09/27/23 Influenza with fever Requesting physician: Ricardo E Sheet - Chief Complaint Weakness shortness of breath and palpitation x days - History of Present Illness Patient is a 43-year-old female with a past medical history difficult for hypertension and collapsing depression presenting to the ER for evaluation of dysrhythmia apparently the patient was evaluated at the urgent care with the patient presented with URI symptoms that apparently has been going on for couple of weeks patient also have a fever along with cough and congestion and did have palpitation apparently the patient was noticed to have a tachycardia with a A- fib and heart rate of 141 for the patient was sent to her [facility] for further evaluation on presentation to the hospital patient was afebrile however she did spike a fever of 102 F patient was tachycardic but not hypotensive or hypoxic patient did have a white count of 13.1 her repeat is 7.1 kidney function has been normal electrolytes are normal liver isms are normal patient did tested positive for influenza A chest x-ray no acute cardiopulmonary disease process patient was admitted to the hospital started on Tamiflu infectious disease was consulted for further management Review of Systems Positive point and negatives has been mentioned in the HPI, complete review of systems was performed and all other systems are negative Past Medical History Past Medical History: Hypertension Additional Past Medical History / Comment(s): narcolepsy History of Any Multi-Drug Resistant Organisms: None Reported Past Surgical History: Cholecystectomy, Tonsillectomy Additional Past Surgical History / Comment(s): hx of narcolepsy Past Psychological History: Depression Smoking Status: Never smoker Past Alcohol Use History: None Reported Past Drug Use History: None Reported, Marijuana - Past Family History Mother Additional Family Medical History / Comment(s): mother hypertension Medications and Allergies Home Medications Medication Instructions Recorded Confirmed Type Labetalol HCl 100 mg PO DAILY 10/04/17 09/26/23 History Dextroamphetamine/Amphetamine 30 mg PO DAILY 05/16/23 09/26/23 History [Adderall Xr 30 mg Capsule] Cholecalciferol [Vitamin D3 (25 25 mcg PO DAILY 09/26/23 09/26/23 History Mcg = 1000 Iu)] [place]-3/Dha/Epa/Fish Oil [Fish Oil 1 cap PO DAILY 09/26/23 09/26/23 History 1,000 mg Softgel] Acetaminophen Tab [Tylenol] 650 mg PO Q6HR PRN 5 Days #20 tab 09/27/23 Rx Aspirin 81 mg PO DAILY #30 tab 09/27/23 Rx Oseltamivir [Tamiflu] 75 mg PO Q12HR 5 Days #9 cap 09/27/23 Rx Allergies Allergy/AdvReac Type Severity Reaction Status Date / Time No Known Allergies Allergy Verified 09/26/23 21:09 Physical Exam Vitals: Vital Signs Temp Pulse Pulse Resp BP BP Pulse Ox 09/27/23 09:08 98.9 F 97 19 129/77 97 09/27/23 08:48 98.9 F 89 15 129/77 09/27/23 06:00 98.1 F 96 18 116/65 97 09/27/23 05:00 102 F H 09/27/23 01:12 100.9 F H 09/26/23 23:39 86 18 112/72 99 09/26/23 20:12 88 09/26/23 20:05 99.8 F H 84 09/26/23 19:30 89 16 125/77 99 09/26/23 18:00 90 20 140/100 98 09/26/23 17:34 101 H 09/26/23 16:34 101 H 20 140/88 98 09/26/23 16:28 98.7 F 106 H 20 151/92 97 Intake and Output 09/26/23 09/27/23 09/27/23 22:59 06:59 14:59 Other: Weight 149.685 kg 149.685 kg GENERAL DESCRIPTION: Middle-aged female lying in bed, no distress. No tachypnea or accessory muscle of respiration use. HEENT: Shows Pallor , no scleral icterus. Oral mucous membrane is dry. No pharyngeal erythema or thrush NECK: Trachea central, no thyromegaly. LUNGS: Unlabored breathing. Clear to auscultation anteriorly. No wheeze or crackle. HEART: S1, S2, regular rate and rhythm. No loud murmur ABDOMEN: Soft, no tenderness , guarding or rigidity, no organomegaly EXTREMITIES: No edema of feet. SKIN: No rash, no masses palpable. NEUROLOGICAL: The patient is awake, alert, oriented x3, mood and affect normal. Results CBC & Chem 7: 09/27/23 07:35 09/27/23 07:35 Labs: Abnormal Lab Results - Last 24 Hours (Table) 09/26/23 09/26/23 09/27/23 Range/Units 16:40 16:40 07:35 WBC 13.1 H (3.8-10.6) k/uL Neutrophils # 10.2 H (1.3-7.7) k/uL Lymphocytes # (1.0-4.8) k/uL Sodium 135 L (137-145) mmol/L Glucose 111 H (74-99) mg/dL Influenza Type A (PCR) Detected A (Not Detectd) 09/27/23 Range/Units 07:35 WBC (3.8-10.6) k/uL Neutrophils # (1.3-7.7) k/uL Lymphocytes # 0.5 L (1.0-4.8) k/uL Sodium (137-145) mmol/L Glucose (74-99) mg/dL Influenza Type A (PCR) (Not Detectd) Assessment and Plan (1) Influenza Status: Acute Code(s): J11.1 - FLU DUE TO UNIDENTIFIED INFLUENZA VIRUS W OTH RESP MANIFEST SNOMED Code(s): 4391964 (2) Fever Status: Acute Code(s): R50.9 - FEVER, UNSPECIFIED SNOMED Code(s): 113023269 (3) Leukocytosis Status: Acute Code(s): D72.829 - ELEVATED WHITE BLOOD CELL COUNT, UNSPECIFIED SNOMED Code(s): 869011679 Plan: 1patient presented hospital with palpitation dysrhythmia from the urgent care concerning for possible A-fib patient did have a fever did have URI symptoms along with bodyaches and has been diagnosed with influenza A more likely etiology of her fever as currently no other obvious focus of infection, chest x- ray negative for pneumonia 2-patient did have elevated white count on admission however normalized as of this morning without antibiotic therapy possible reactive 3-patient will be advised Tamiflu 75 mg twice a day to finish a 5-day course of therapy We will follow on clinical condition and cultures to further adjust medication if needed Thank you for this consultation we will follow the patient along with you Dictation was produced using [employer] software. please excuse any grammatical, word or spelling errors.
[2023-09-28] MEDS ORDERED: ASPIRIN 81 MG PO SCH (09:00)
== END 2023-09-27 16:54 | disposition home or self-care (01) ==
LOC: EC 16:24 → 3SCARD 20:00
PROVIDERS: ADMIT Hospitalist; ATTEND Hospitalist
DX: I48.91 Unspecified atrial fibrillation (principal); J10.1 Influenza due to other identified influenza virus with other respiratory manifestations; I10 Essential (primary) hypertension; F32.A Depression, unspecified; G47.419 Narcolepsy without cataplexy; G47.33 Obstructive sleep apnea (adult) (pediatric); E66.01 Morbid (severe) obesity due to excess calories; Z68.43 Body mass index [BMI] 50.0-59.9, adult; Z79.82 Long term (current) use of aspirin; Z79.899 Other long term (current) drug therapy
CPT/HCPCS: 96372; 96374; 99285; 36415; 94640; 93005; 93306; 84439; 84481; 80061; 80053; 80048; 83735; 84443; 84484; 85025 ×2; 85610; 85730; 84703; 87636; 71046; G0378 ×2; J1644; J3490